=== PATIENT | female | born 1990 | race Caucasian/White ===

== ENCOUNTER 2020-06-19 18:45 | Emergency (ER) | payer MEDICAID, SELFPAY ==
--- NOTE | 2020-06-19 17:12 | ECG_ITS ---
Test Reason : CHEST TITENESS Blood Pressure : / mmHG Vent. Rate : 065 BPM Atrial Rate : 065 BPM P-R Int : 130 ms QRS Dur : 096 ms QT Int : 414 ms P-R-T Axes : 019 045 039 degrees QTc Int : 430 ms Normal sinus rhythm Normal ECG When compared with ECG of 30-NOV-2018 01:59, Nonspecific T wave abnormality no longer evident in Anterior leads Referred By: Dyllan Moya Electronically Signed By:PETER SERNA
[2020-06-19 20:51] VITALS: BP 157/100; PULSE 75; RESP 16; TEMP 37.1; O2SAT 100; BMI 68.3
--- NOTE | 2020-06-19 22:00 | PC.NURSE ---
Addendum entered by Joycelyn Sandhu 06/19/20 22:33: PREVIOUS DOCUMENTATION A LATE ENTRY. ACTUAL TIME OF NOTE 2139. Original Note: PT REPORTS SOB SINCE MONDAY, LIGHTHEADED AT TIMES, WHOLE CHEST TENDERNESS CONSTANT NON RADIATING, REPRODUCIBLE. DENIES FEVER/CHILLS. DENIES COUGH. REPORTS VAGINAL SURGERY LAST WEEK AND ?STOPPED BREATHING DURING PROCEDURE AND PADDLES USED TO RESUSCITATE? SKIN PWD RESPIRATIONS EVEN UNLABORED. MD MET[place]F AT BEDSIDE FOR PRIMARY EVAL.
[2020-06-19] MEDS: ondansetron HCL 4 MG/2 ML VIAL IVPUSH (22:19)
[2020-06-19] MEDS: 0.9 % Sodium Chloride 1,000 ML 999 ML IVCONT (22:19)
[2020-06-19] MEDS: Ketorolac Tromethamine 30 MG/ML VIAL IVPUSH (22:19)
--- NOTE | 2020-06-19 22:24 | PC.NURSE ---
PT MEDICATED PER MD ORDER. IVF HUNG AND INFUSING WITHOUT DIFFICULTY. BLOOD SPECIMEN SENT TO LAB FOR PROCESSING. PT AWAITING CT SCAN, AWARE OF PLAN OF CARE.
[2020-06-19 22:25] LABS: MANUAL DIFF FLAG NO
[2020-06-19 22:26] LABS: Basophils Percent Auto 0.4 % (0-2); Eosinophils Absolute Auto 0.1 X10*3/uL (0.0-0.4); Eosinophils Percent Auto 1.8 % (0-4); Hematocrit 39.6 % (37-47); Hemoglobin 12.6 g/dl (12.0-16.0); Imm Gran Abs Auto 0.09 X10*3/uL (0.00-0.03); Imm Gran Pct Auto 1.2 % (0.0-0.4); Lymphocytes Absolute Auto 1.9 X10*3/uL (1.2-4.9); Lymphocytes Percent Auto 25.9 % (20-40); Mean Corpuscular HGB Conc 31.8 g/dl (31.0-35.0); Mean Corpuscular Hemoglobin 26.9 pg (27.0-33.0); Mean Corpuscular Volume 84.6 fL (80-98); Monocytes Absolute Auto 0.6 X10*3/uL (0.1-1.2); Monocytes Percent Auto 8.2 % (2-11); Neutrophils Absolute Auto 4.6 X10*3/uL (2.0-8.3); Neutrophils Percent Auto 62.5 % (45-73); Platelet Count 278 X10*3/uL (160-400); Red Blood Count 4.68 X10*6/uL (4.20-5.50); Red Cell Distribution Width 13.7 % (11.0-16.0); White Blood Count 7.3 X10*3/uL (4.8-10.8)
[2020-06-19 22:35] LABS: Partial Thromboplastin Time 39.5 SEC (24.1-38.0)
[2020-06-19 22:44] VITALS: BP 172/97; PULSE 67; RESP 18; TEMP 36.7; O2SAT 99
[2020-06-19 23:00] LABS: Anion Gap 12 (12-20); Blood Urea Nitrogen 16 mg/dL (9-16); Calcium 9.9 mg/dL (8.4-10.2); Carbon Dioxide 28 mmol/L (22-29); Chloride 104 mmol/L (96-108); Creatinine Clr Calc Pharmacy 165.4; Estimated Glomerular Filt Rate > 60; Glucose Random 111 mg/dL (60-115); Potassium 4.4 mmol/l (3.3-5.1); Sodium 140 mmol/L (135-145)
[2020-06-19 23:04] LABS: Troponin-I High Sensitivity < 3.5 ng/L (<3.5-17.0)
--- NOTE | 2020-06-19 23:31 | ED.CHESTPAIN ---
HPI - Chest Pain General Chief Complaint: General Medical Stated Complaint: CHEST PRESSURE Time Seen by Provider: 06/19/20 21:32 Source: patient History of Present Illness HPI narrative: patient states for about 5 days has been having chest pain and shortness of breath. Patient states 5 days ago had a outpatient surgery in which had a reaction to the medication and had to stay the night. Since then has been having a heaviness on chest. No diaphoresis. No nausea no vomiting. No syncope. Patient describes chest pain as pressure tightness without moving and intermittent shortness of breath MD complaint: chest pain and chest heaviness Pertinent past history: coronary artery disease Onset (ago): day(s) ( 5 days) Timing of current episode: constant Prior episodes: No Quality: other ( pressure type) Related Data On Oral Contraceptives: No Allergies Allergy/AdvReac Type Severity Reaction Status Date / Time oxycodone [OXYCODONE] Allergy Severe DIFFICULTY Unverified 06/04/20 17:33 BREATHING adhesive tape [ADHESIVE TAPE] Allergy Unknown RASH Unverified 06/04/20 17:33 Review of Systems Review of Systems: Constitutional : No Weight loss, No Fever, No Chills, No Night Sweats, No Fatigue, No Malaise ENT/Mouth : No Hearing loss, No Ear Pain, No Nasal Congestion, No Sinus Pain, No Hoarseness, No sore throat, No Rhinorrhea, No Swallowing Difficulty Eyes: No Eye Pain, No Swelling, No Redness, No Foreign Body, No Discharge, No Vision Changes Cardiovascular : positve Chest Pain, No SOB, No Dyspnea on Exertion, No Orthopnea, No Edema, No Palpitations Respiratory : No Cough, No Sputum, No Wheezing, No Smoke Exposure, No Dyspnea Gastrointestinal : No Nausea, No Vomiting, No Diarrhea, No Constipation, No abdominal Pain, No Hematochezia, No Melena Genitourinary : no irregular bleeding, No Dysuria, No Urinary Frequency, No Hematuria, No Urinary Incontinence, No Urgency, No Flank Pain, No Urinary Flow Changes, No Hesitancy Musculoskeletal : No joint pain, No Myalgias, No Joint Swelling Skin : No Skin Lesions, No rash Neuro : No Weakness, No Numbness, No Paresthesias, No Loss of Consciousness, No Dizziness, No Headache Psych : No Anxiety/Panic, No Depression, No SI/HI/AH/VH, No Social Issues, Heme/Lymph: No Bruising, No Bleeding,No Lymphadenopathy Endocrine : No Polyuria, No Polydipsia, No Temperature Intolerance [facility] Past Medical History Attestation statement: The following information was validated with the patient. [facility] Narrative: patient aware of family history Medical History No known health problems Social History Social History Alcohol intake: current Alcohol intake frequency: a few times a month Smoking Status: Never smoker Smoked in Last 30 Days: No Use of substances other than those prescribed or required for medical reasons: No Advance Directives: No Advance Directives Information Provided: Yes Physical Exam Vital Signs and I&O and Narrative: Vital Signs and I&O: Vital Signs Temp 98.0 F 06/19/20 22:44 Pulse 67 06/19/20 22:44 Resp 18 06/19/20 22:44 BP 172/97 H 06/19/20 22:44 Pulse Ox 99 06/19/20 22:44 Intake & Output 06/19/20 06/19/20 06/20/20 06:59 18:59 06:59 Intake Total 1000 / 1000 Balance 1000 / 1000 Weight 210 kg Intake: Intake, IV Amoun t 1000 / 1000 0.9 % Sodium C hloride 1,000 ml 1000 / 1000 @ 999 mls/hr I VCONT .Q1H1M [facility] Rx#:[id number] Body Mass Index 68.3 vital signs noted Const: General: cooperative and comfortable; No in distress Orientation/consciousness: oriented to person HENMT: Head: Yes normal to inspection Eyes: General: appearance normal, both eyes and all related structures Pupils: Equal, round and reactive pupils present Neck: Neck: Yes normal visual inspection Chest: Chest palpation & inspection: normal inspection of the chest, abnormal palpation of chest wall, normal inspection of the chest, no crepitus, tenderness ( left upper quadrant of the chest) and No Pacemaker present Resp: Effort & Inspection: normal respiratory effort, respiratory effort not decreased and no respiratory distress Auscultation: clear to auscultation bilaterally and no bronchial breath sounds Cardio: Jugular venous distension: no JVD Palpation: PMI normal, no heave and no palpable S3 Rate: regular rate GI: Inspection: Yes normal to inspection Back/Spine/Pelvis: Thoracic/Lumbar Spine: thoracic and lumbar spine normal to inspection Skin: Rashes: no rashes Neuro: General: oriented to person Cranial nerves: Yes Equal, round and reactive pupils present Extrem: General: Yes normal to inspection Psych: Appearance: grossly normal Course Reevaluation(s) Reevaluation #1: patient rested emergency department. CT scan of the chest negative for pulmonary embolism. Troponin normal . labs negative. patient did have some tenderness to the chest and I will diagnose with costochondritis. Doubt patient has acute coronary syndrome at this point. I discussed the patient's reasons return to the emergency department. Patient is on pain medicines from recent surgery. MDM - Chest Pain MDM Narrative Medical decision making narrative: 30-year-old female with recent surgery came in for chest pain and shortness of breath. No signs of pulmonary embolism, pneumonia, or acute coronary syndrome. Will discharge home with p.o. medications for costochondritis Differential Diagnosis Differential diagnosis: Likely fracture of rib, pneumothorax and atypical chest pain ( pulmonary embolism) Medical Records Data Attestation: I reviewed the patient's medical records. Lab Data Attestation: I reviewed the patient's lab results. Result diagrams: 06/19/20 22:17 06/19/20 22:17 Labs: Lab Results 06/19/20 06/19/20 06/19/20 Range/Units 22:17 22:17 22:17 WBC 7.3 (4.8-10.8) X10*3/uL RBC 4.68 (4.20-5.50) X10*6/uL Hgb 12.6 (12.0-16.0) g/dl Hct 39.6 (37-47) % MCV 84.6 (80-98) fL MCH 26.9 L (27.0-33.0) pg MCHC 31.8 (31.0-35.0) g/dl RDW 13.7 (11.0-16.0) % Plt Count 278 (160-400) X10*3/uL MPV 11.0 (9.4-12.3) fL Immature Gran % (Auto) 1.2 H (0.0-0.4) % Neut % (Auto) 62.5 (45-73) % Lymph % (Auto) 25.9 (20-40) % [place] % (Auto) 8.2 (2-11) % Eos % (Auto) 1.8 (0-4) % Baso % (Auto) 0.4 (0-2) % Neut # (Auto) 4.6 (2.0-8.3) X10*3/uL Lymph # (Auto) 1.9 (1.2-4.9) X10*3/uL [place] # (Auto) 0.6 (0.1-1.2) X10*3/uL Eos # (Auto) 0.1 (0.0-0.4) X10*3/uL Baso # (Auto) 0.0 (0.0-0.2) X10*3/uL Abs Immat Gran (auto) 0.09 H (0.00-0.03) X10*3/uL Absolute Nucleated RBC 0.000 (0.0-0.012) X10*3/uL Nucleated RBC % (auto) 0.0 (0.0-0.2) /100WBC PT 12.1 (10.8-13.0) SEC INR 1.0 (0.9-1.1) APTT 39.5 H (24.1-38.0) SEC Sodium 140 (135-145) mmol/L Potassium 4.4 (3.3-5.1) mmol/l Chloride 104 (96-108) mmol/L Carbon Dioxide 28 (22-29) mmol/L Anion Gap 12 (12-20) BUN 16 (9-16) mg/dL Creatinine 0.98 (0.5-1.4) mg/dL Estim Creat Clear Calc 165.4 Estimated GFR > 60 Random Glucose 111 (60-115) mg/dL Calcium 9.9 (8.4-10.2) mg/dL Troponin I High Sens (<3.5-17.0) ng/L 06/19/20 Range/Units 22:17 WBC (4.8-10.8) X10*3/uL RBC (4.20-5.50) X10*6/uL Hgb (12.0-16.0) g/dl Hct (37-47) % MCV (80-98) fL MCH (27.0-33.0) pg MCHC (31.0-35.0) g/dl RDW (11.0-16.0) % Plt Count (160-400) X10*3/uL MPV (9.4-12.3) fL Immature Gran % (Auto) (0.0-0.4) % Neut % (Auto) (45-73) % Lymph % (Auto) (20-40) % [place] % (Auto) (2-11) % Eos % (Auto) (0-4) % Baso % (Auto) (0-2) % Neut # (Auto) (2.0-8.3) X10*3/uL Lymph # (Auto) (1.2-4.9) X10*3/uL [place] # (Auto) (0.1-1.2) X10*3/uL Eos # (Auto) (0.0-0.4) X10*3/uL Baso # (Auto) (0.0-0.2) X10*3/uL Abs Immat Gran (auto) (0.00-0.03) X10*3/uL Absolute Nucleated RBC (0.0-0.012) X10*3/uL Nucleated RBC % (auto) (0.0-0.2) /100WBC PT (10.8-13.0) SEC INR (0.9-1.1) APTT (24.1-38.0) SEC Sodium (135-145) mmol/L Potassium (3.3-5.1) mmol/l Chloride (96-108) mmol/L Carbon Dioxide (22-29) mmol/L Anion Gap (12-20) BUN (9-16) mg/dL Creatinine (0.5-1.4) mg/dL Estim Creat Clear Calc Estimated GFR Random Glucose (60-115) mg/dL Calcium (8.4-10.2) mg/dL Troponin I High Sens < 3.5 (<3.5-17.0) ng/L Discharge Plan Discharge Clinical Impression: Acute costochondritis, Chest wall pain Patient Disposition: Home, Self-Care Instructions: Costochondritis (ED) Additional Instructions: Thank you for visiting the emergency department today. If your symptoms worsen or do not resolve completely please return to the emergency department immediately or call 911. if he have any questions please call your primary care physician Referrals: Nesteby,Belia A, HYSTER DRIVER [Primary Care Provider] - 2 days
[2020-06-19 23:42] LABS: Prothrombin Time 12.1 SEC (10.8-13.0)
--- NOTE | 2020-06-20 | CT_ITS ---
EXAMINATION: CT PULMONARY EMBOLISM STUDY CLINICAL INFORMATION: Chest pain. COMPARISON: None. TECHNIQUE: Contiguous helical images of the chest were obtained following the administration of IV contrast. Multiplanar reconstructions were performed. MIPS were obtained and reviewed. DLP: 374 mGy-cm. CONTRAST: 85 mL of Omnipaque 350 were administered without incident. FINDINGS: The heart is of normal size. There is no pericardial effusion. The great vessels are unremarkable. Specifically, there is no pulmonary arterial filling defect. There is no CT evidence for pulmonary embolism. There are no chest wall masses. Intact bilateral breast prostheses are demonstrated. Review of lung windows demonstrates that there are neither pleural effusions nor pneumothoraces. There are no consolidations. There are no pulmonary parenchymal nodules. Limited evaluation of the upper abdomen demonstrates that the liver is of normal size and attenuation without focal lesions. Normal adrenal glands are identified. IMPRESSION: No CT evidence for pulmonary embolism. Automated exposure control (Care Dose) Adjustment of the mA and/or kv according to patient size (this includes techniques or standardized protocols for targeted exams where dose is matched to indication / reason for exam; i.e. extremities or head).
[2020-06-20] MEDS: iohexoL 350 MG/ML 100 ML INFUS..BTL 65 ML IV (00:37)
--- NOTE | 2020-06-20 00:49 | PC.NURSE ---
PT RETURNED FROM CTA AWAITING RESULTS. RESTING IN BED NO CHANGE IN ASSESSMENT.
[2020-06-20 02:12] VITALS: BP 148/100; PULSE 62; RESP 16; TEMP 36.7; O2SAT 96
== END 2020-06-20 02:27 | disposition home or self-care (01) ==
PROVIDERS: Emergency Provider Emergency Medicine; PCP Nurse Practitioner Family
DX: M94.0 Chondrocostal junction syndrome [Tietze] (principal); R07.9 Chest pain, unspecified; R06.02 Shortness of breath
CPT/HCPCS: 36415; 71275; 80048; 84484; 85025; 85610; 85730; 93005; 93010; 96361; 96374; 96375; 99284; J1885; J2405

== ENCOUNTER 2020-08-05 21:59 | Emergency (ER) | payer MEDICAID, SELFPAY ==
[2020-08-05 22:05] VITALS: BP 157/99; PULSE 80; RESP 16; TEMP 36.6; O2SAT 99; BMI 32.5
[2020-08-06] MEDS: Ketorolac Tromethamine 60 MG/2 ML VIAL IM
[2020-08-06] MEDS: Lidocaine 4 % Patch ADH..PATCH 1 PATCH TRANSDERMA (00:01)
--- NOTE | 2020-08-06 01:02 | XR_ITS ---
EXAMINATION: XR LUMBOSACRAL SPINE CLINICAL INFORMATION: Pain COMPARISON: 02/06/2017 TECHNIQUE: Three views of the lumbosacral spine. FINDINGS: There is anatomic alignment of the lumbar vertebral bodies and posterior elements. Vertebral body heights and intervertebral disc spaces are maintained. No acute fracture is seen. Sacroiliac joints appear intact. XR/XR lumbar spine 2-3V IMPRESSION: No acute findings identified.
--- NOTE | 2020-08-06 01:58 | ED_ITS ---
HPI - Back Pain/Injury General Chief Complaint: Back Pain/Injury Stated Complaint: Lower Back Pain Time Seen by Provider: 08/05/20 23:52 Source: patient Mode of arrival: ambulatory Limitations: no limitations History of Present Illness MD elicited complaint: back pain Pertinent past history: prior back pain Onset (ago): hour(s) Timing: constant Severity: moderate Similar Symptoms Previously: Yes Quality: aching Location: lumbar spine Radiation: none Exacerbating factors: movement Relieving factors: immobilization Context: while lifting and turning/twisting Associated symptoms: denies other symptoms Treatments prior to arrival: cold therapy 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) Related Data Previous Rx's Medication Instructions Recorded cyclobenzaprine 5 mg PO TID PRN #20 tab 08/06/20 lidocaine 1 patch TOPICAL Q24H PRN #10 ea 08/06/20 Allergies Allergy/AdvReac Type Severity Reaction Status Date / Time oxycodone [OXYCODONE] Allergy Severe DIFFICULTY Unverified 06/04/20 17:33 BREATHING adhesive tape [ADHESIVE TAPE] Allergy Unknown RASH Unverified 06/04/20 17:33 Review of Systems Review of Systems: Constitutional: No Weight loss, No Fever, No Chills, No Night Sweats ENT/Mouth: No Hearing loss, No Ear Pain, No Nasal Congestion, No Sinus Pain, No Hoarseness, No sore throat, No Rhinorrhea, No Swallowing Difficulty Eyes: No Eye Pain, No Swelling, No Redness, No Foreign Body, No Discharge, No Vision Changes Cardiovascular: No Chest Pain, No SOB, No Dyspnea on Exertion, No Orthopnea, No Edema, No Palpitations Respiratory: No Cough, No Sputum, No Wheezing, No Smoke Exposure, No Dyspnea Gastrointestinal: No Nausea, No Vomiting, No Diarrhea, No Constipation, No abdominal Pain, No Hematochezia, No Melena Genitourinary: no irregular bleeding, No Dysuria, No Urinary Frequency, No Hematuria Musculoskeletal: No joint pain, No Myalgias, No Joint Swelling, + as noted Skin: No Skin Lesions, No rash Neuro: No Weakness, No Numbness, No Paresthesias, No Loss of Consciousness, No Dizziness, No Headache Psych: No Anxiety/Panic Heme/Lymph: No Bruising, No Bleeding,No Lymphadenopathy Endocrine: No Polyuria, No Polydipsia, No Temperature Intolerance Yes all other systems are reviewed and are negative [facility] Past Medical History Attestation statement: The following information was validated with the patient. Medical History No known health problems Social History Social History Alcohol intake: current Alcohol intake frequency: holidays/special occasions only Alcohol type: wine Smoking Status: Never smoker Use of substances other than those prescribed or required for medical reasons: No Advance Directives: No Advance Directives Information Provided: No Physical Exam Vital Signs: Vital Signs: Last Vital Signs Temp 98 F 08/05/20 22:05 Pulse 80 08/05/20 22:05 Resp 16 08/05/20 22:05 BP 157/99 H 08/05/20 22:05 Pulse Ox 99 08/05/20 22:05 Body Mass Index 32.5 Reviewed Const: General: cooperative and healthy appearing; No acute distress or intoxicated appearing Nutritional Appearance: average body habitus Orientation/consciousness: patient oriented x3 HENMT: Head: Yes normal to inspection Ears: hearing grossly normal bilaterally Eyes: General: appearance normal, both eyes and all related structures Visual Domingo: normal visual domingo by confrontation Neck: Neck: No tender Chest: Chest palpation & inspection: normal inspection of the chest Resp: Effort & Inspection: normal respiratory effort Cardio: Jugular venous distension: no JVD GI: Inspection: Yes normal to inspection Percussion: Yes normal to percussion Auscultation: normal bowel sounds Back/Spine/Pelvis: Other: slight ttp over the bilateral lumbar paraspinal muscle. No midline to palpation. No step-off. Skin: General skin exam: no rashes or lesions noted Neuro: General: patient oriented x3 Extrem: General: Yes normal to inspection Course Course Course Narrative: AP consistent with strain type injury. No low back pain reflux. Ambulatory status with gait. X-ray unremarkable. Given the injury did occur at work from repetitive use type injury will be given a work note per his request and encouraged to [facility] with [facility]. Verbalized understanding. Stable for discharge. MDM - Back Pain/Injury Differential Diagnosis Differential diagnosis: Likely strain of lumbar region; Unlikely lumbar radiculopathy, sciatica, renal colic, pyelonephritis, thoracic back pain, AAA and discitis Medical Records Attestation: I reviewed the patient's medical records. Lab Data Attestation: I reviewed the patient's lab results. Imaging Data Lumbar spine x-ray: Radiologist's impression: Alla Murrieta V 30 F [address] [address] XRay Report Signed Patient: Alla Murrieta VMR#: [id number] : 1990Acct:[id number] Age/Sex: 30 / FADM Date: 08/06/20 Loc: HO.ED Attending Dr: Ordering Physician: Prasad Rodriguez NP Date of Service: 08/06/20 Procedure(s): XR lumbar spine 2-3V Accession Number(s): [id number] cc: Prasad Rodriguez NP~ EXAMINATION: XR LUMBOSACRAL SPINE CLINICAL INFORMATION: Pain COMPARISON: 02/06/2017 TECHNIQUE: Three views of the lumbosacral spine. FINDINGS: There is anatomic alignment of the lumbar vertebral bodies and posterior elements. Vertebral body heights and intervertebral disc spaces are maintained. No acute fracture is seen. Sacroiliac joints appear intact. XR/XR lumbar spine 2-3V IMPRESSION: No acute findings identified. Dictated By:CITLALLI CHEN MD Signed By:<Electronically signed by CITLALLI CHEN MD in OV>08/06/20222 DD/ 1 TD/TT: Credit Manager: TH Discharge Plan Discharge Clinical Impression: Strain of lumbar region Patient Disposition: Home, Self-Care Instructions: Low Back Strain (ED), Lower Back Exercises (ED) Additional Instructions: Home cares reviewed Follow-up with [facility] as discussed Return if any concerns or worsening symptoms Thank you Prescriptions: New cyclobenzaprine 10 mg tablet 5 mg PO TID PRN (Reason: muscle spasm) Qty: 20 RF: 0 lidocaine 4 % adhesive patch,medicated 1 patch topical Q24H PRN (Reason: pain) Qty: 10 RF: 0 Referrals: Physician,Unknown [Primary Care Provider] - 3 days ( primary care/ [facility]) Stand Alone Forms: Work/School Release Interventions: ED Discharge Assessment Last Done: 08/06/20 02:25 Discharge Date/Time: 08/06/20 02:26
== END 2020-08-06 02:26 | disposition home or self-care (01) ==
PROVIDERS: Emergency Provider Student in an Organized Health Care Education/Training Program
DX: S39.012A Strain of muscle, fascia and tendon of lower back, initial encounter (principal); X50.1XXA Overexertion from prolonged static or awkward postures, initial encounter; Y93.9 Activity, unspecified; Y92.9 Unspecified place or not applicable; Y99.9 Unspecified external cause status
CPT/HCPCS: 72100; 96372; 99284; J1885

== ENCOUNTER 2020-11-15 19:32 | Emergency (ER) | payer MEDICAID, SELFPAY ==
--- NOTE | ~2020-11-15 | CT_ITS ---
EXAMINATION: CT ABDOMEN AND PELVIS WITHOUT CONTRAST CLINICAL INFORMATION: Left flank pain COMPARISON: None TECHNIQUE: Multidetector volumetric imaging was performed from the superior aspect of the liver through the pubic symphysis. Sagittal and coronal reformatted images were obtained on the technologist's workstation. This CT examination was performed using dose optimization techniques as appropriate, variously including the following: *Automated exposure control *Adjustment of mA and/or kV according to patient size (this includes techniques or standardized protocols for targeted exams where dose is matched to indication/reason for exam; i.e. extremities or head) *Use of iterative reconstruction technique DLP: 732 mGy-cm FINDINGS: LUNG BASES: The visualized lung bases are unremarkable. LIVER, GALLBLADDER, AND BILIARY TREE: The liver is normal in size, shape, and attenuation. No focal hepatic lesion or biliary ductal dilatation is present. Gallbladder unremarkable. PANCREAS: Unremarkable. SPLEEN: Unremarkable. ADRENAL GLANDS: Subcentimeter low-density (8 Hounsfield units) lipid rich adrenal adenoma on the right, stable. Left adrenal gland normal. KIDNEYS AND URETERS: There is perinephric stranding on the left associated with minimal hydronephrosis and hydroureter. Mild left periureteral fat stranding. No urinary calculi are seen. Right kidney unremarkable. BLADDER: Thick walled showing perivesicular fat stranding suggestive of cystitis. GASTROINTESTINAL TRACT: The small and large bowel are unremarkable. The appendix is unremarkable. ABDOMINAL WALL: No significant hernia is appreciated. LYMPH NODES: Normal. VASCULAR: Unremarkable. PELVIC VISCERA: Prostate and seminal vesicles unremarkable. OSSEOUS STRUCTURES: Unremarkable. CT/CT abdomen pelvis wo con IMPRESSION: No urinary calculi. Findings compatible with LEFT pyelonephritis with LEFT ureteritis and cystitis.
[2020-11-15 19:34] VITALS: BP 158/84; PULSE 102; RESP 15; TEMP 37.3; O2SAT 100; BMI 33.2
--- NOTE | 2020-11-15 20:21 | ED_ITS ---
HPI - Female Genitourinary General Chief complaint: Urogenital-Female Stated complaint: Flank pain Time Seen by Provider: 11/15/20 20:21 Source: patient Mode of arrival: ambulatory Limitations: no limitations History of Present Illness HPI Narrative: Patient transgender male to female complaining of pain in the left flank area since yesterday with burning and frequency when urinate no fever no nausea no vomiting no history of kidney stones MD elicited complaint: dysuria Onset (ago): day(s) (1) Severity: moderate Quality of pain: sharp Consistency: intermittent Urinary symptoms: Dysuria, Urgency and Frequency Exacerbating factors: none Relieving factors: none Associated symptoms: denies other symptoms Related Data Previous Rx's Medication Instructions Recorded cyclobenzaprine 5 mg PO TID PRN #20 tab 08/06/20 ciprofloxacin HCl [Cipro] 500 mg PO BID #20 tab 11/15/20 phenazopyridine [Pyridium] 200 mg PO TID PRN 2 Days #5 tab 11/15/20 tramadol 50 mg PO Q6H PRN #14 tab 11/15/20 Allergies Allergy/AdvReac Type Severity Reaction Status Date / Time oxycodone [OXYCODONE] Allergy Severe DIFFICULTY Verified 11/15/20 19:41 BREATHING adhesive tape [ADHESIVE TAPE] Allergy Unknown RASH Verified 11/15/20 19:41 Review of Systems Review of Systems: Constitutional : No Weight loss, No Fever, No Chills ENT/Mouth : No sore throat, No Rhinorrhea Eyes: No Eye Pain, No Swelling Cardiovascular : No Chest Pain, no palpitations Respiratory : No Cough, No Sputum, no shortness of breath Gastrointestinal : no Nausea, No Vomiting, No Diarrhea, No abdominal Pain, no black stools Genitourinary : + Dysuria, + Urinary Frequency Musculoskeletal : No joint pain, No Myalgias, No Joint Swelling Skin : No Skin Lesions, No rash Neuro : No Weakness, No Numbness, No Dizziness, No Headache Psych : No Anxiety/Panic, No Depression Heme/Lymph: No Bruising, No Lymphadenopathy Endocrine : No Polyuria, No Polydipsia All other systems reviewed and are negative [facility] Past Medical History Medical History [id number] transgender person Social History Social History Alcohol intake: current Alcohol intake frequency: holidays/special occasions only Alcohol type: wine Smoking Status: Never smoker Use of substances other than those prescribed or required for medical reasons: No Advance Directives: No Advance Directives Information Provided: No Physical Exam Vital Signs: Vital Signs: Last Vital Signs Temp 100.2 F 11/15/20 23:35 Pulse 79 11/15/20 23:35 Resp 18 11/15/20 23:35 BP 162/91 H 11/15/20 23:35 Pulse Ox 100 11/15/20 23:35 Body Mass Index 33.2 Appearance: Alert. Oriented X3. No acute distress. Eyes: Pupils equal, round and reactive to light. ENT: Pharynx normal. Neck: Normal inspection. Neck supple. CVS: Normal heart rate and rhythm. Pulses normal. Respiratory: No respiratory distress. Breath sounds normal. Abdomen: Soft and nontender. Bowel sounds are present, no mass palpable, left C VA tenderness + Skin: Skin warm and dry. Normal skin color. Normal skin turgor. Extremities: No lower extremity edema. Neuro: Oriented X 3. No motor deficit. No sensory deficit. MDM - Female Genitourinary MDM Narrative Medical decision making narrative: Patient with acute UTI with pyelonephritis no signs of complication at this time no nausea no vomiting no high fever will discharge patient home on Cipro. Patient received 1 g of IV Rocephin in the ER Differential Diagnosis Differential diagnosis: Likely urinary tract infection and cystitis Lab Data Attestation: I reviewed the patient's lab results. Result diagrams: 11/15/20 20:55 11/15/20 20:55 Labs: Lab Results 11/15/20 11/15/20 11/15/20 Range/Units 20:55 20:55 21:20 WBC 12.1 H (4.8-10.8) X10*3/uL RBC 4.47 (4.20-5.50) X10*6/uL Hgb 12.3 (12.0-16.0) g/dl Hct 38.1 (37-47) % MCV 85.2 (80-98) fL MCH 27.5 (27.0-33.0) pg MCHC 32.3 (31.0-35.0) g/dl RDW 14.0 (11.0-16.0) % Plt Count 210 (160-400) X10*3/uL MPV 11.7 (9.4-12.3) fL Immature Gran % (Auto) 0.2 (0.0-0.4) % Neut % (Auto) 72.5 (45-73) % Lymph % (Auto) 17.8 L (20-40) % Person % (Auto) 8.7 (2-11) % Eos % (Auto) 0.5 (0-4) % Baso % (Auto) 0.3 (0-2) % Lymph # (Auto) 2.2 (1.2-4.9) X10*3/uL Person # (Auto) 1.1 (0.1-1.2) X10*3/uL Eos # (Auto) 0.1 (0.0-0.4) X10*3/uL Baso # (Auto) 0.0 (0.0-0.2) X10*3/uL Abs Immat Gran (auto) 0.02 (0.00-0.03) X10*3/uL Absolute Neuts (auto) 8.8 H (2.0-8.3) X10*3/uL Absolute Nucleated RBC 0.000 (0.0-0.012) X10*3/uL Nucleated RBC % (auto) 0.0 (0.0-0.2) /100WBC Sodium 137 (135-145) mmol/L Potassium 4.0 (3.3-5.1) mmol/L Chloride 103 (96-108) mmol/L Carbon Dioxide 23 (22-29) mmol/L Anion Gap 15 (12-20) BUN 14 (9-16) mg/dL Creatinine 0.88 (0.5-1.4) mg/dL Estim Creat Clear Calc 119.9 Estimated GFR > 60 Random Glucose 108 (60-115) mg/dL Calcium 9.1 D (8.4-10.2) mg/dL Urine Color YELLOW Urine Appearance CLOUDY Urine pH 6.0 (5.0-8.0) Ur Specific Verbena 1.020 (1.005-1.025) Urine Protein 2+ H (NEG-TRACE) MG/DL Urine Glucose (UA) NEG (NEG) MG/DL Urine Ketones NEG (NEG) MG/DL Urine Blood 3+ H (NEG) Urine Nitrite POS H (NEG) Ur Leukocyte Esterase 2+ H (NEG) Urine RBC 5-9 H (0) /HPF Urine WBC 76-150 H (0-4) /HPF Ur Squamous Epith Cells TRACE /LPF Urine Bacteria 3+ /LPF Discharge Plan Discharge Clinical Impression: Pyelonephritis Patient Disposition: Home, Self-Care Instructions: Kidney Infection (ED) Additional Instructions: Drink plenty of fluids Take antibiotics as prescribed Report to the ER if high-grade fever/vomiting/not feeling good Prescriptions: New ciprofloxacin HCl [Cipro] 500 mg tablet 500 mg PO BID Qty: 20 RF: 0 phenazopyridine [Pyridium] 200 mg tablet 200 mg PO TID PRN (Reason: pain) 2 Days Qty: 5 RF: 0 tramadol 50 mg tablet 50 mg PO Q6H PRN (Reason: pain) Qty: 14 RF: 0 No Action cyclobenzaprine 10 mg tablet 5 mg PO TID PRN (Reason: muscle spasm) Qty: 20 RF: 0 Discharge Date/Time: 11/15/20 23:39
[2020-11-15 20:32] VITALS: BP 154/91; PULSE 83; RESP 18; TEMP 38.1; O2SAT 100
[2020-11-15 20:59] LABS: MANUAL DIFF FLAG NO
[2020-11-15 21:01] LABS: Basophils Percent Auto 0.3 % (0-2); Eosinophils Absolute Auto 0.1 X10*3/uL (0.0-0.4); Eosinophils Percent Auto 0.5 % (0-4); Hematocrit 38.1 % (37-47); Hemoglobin 12.3 g/dl (12.0-16.0); Imm Gran Abs Auto 0.02 X10*3/uL (0.00-0.03); Imm Gran Pct Auto 0.2 % (0.0-0.4); Lymphocytes Absolute Auto 2.2 X10*3/uL (1.2-4.9); Lymphocytes Percent Auto 17.8 % (20-40); Mean Corpuscular HGB Conc 32.3 g/dl (31.0-35.0); Mean Corpuscular Hemoglobin 27.5 pg (27.0-33.0); Mean Corpuscular Volume 85.2 fL (80-98); Mean Platelet Volume 11.7 fL (9.4-12.3); Monocytes Absolute Auto 1.1 X10*3/uL (0.1-1.2); Monocytes Percent Auto 8.7 % (2-11); Neutrophils Absolute Auto 8.8 X10*3/uL (2.0-8.3); Neutrophils Percent Auto 72.5 % (45-73); Platelet Count 210 X10*3/uL (160-400); Red Blood Count 4.47 X10*6/uL (4.20-5.50); White Blood Count 12.1 X10*3/uL (4.8-10.8)
[2020-11-15] MEDS: 0.9 % Sodium Chloride 1,000 ML 999 ML IVCONT (21:12)
[2020-11-15] MEDS: Ketorolac Tromethamine 30 MG/ML VIAL IVPUSH (21:13)
[2020-11-15 21:26] LABS: Anion Gap 15 (12-20); Blood Urea Nitrogen 14 mg/dL (9-16); Calcium 9.1 mg/dL (8.4-10.2); Carbon Dioxide 23 mmol/L (22-29); Chloride 103 mmol/L (96-108); Creatinine Clr Calc Pharmacy 119.9; Estimated Glomerular Filt Rate > 60; Glucose Random 108 mg/dL (60-115); Sodium 137 mmol/L (135-145)
[2020-11-15 21:32] LABS: Glucose Urine UA NEG (NEG); Leukocyte Esterase Urine 2+ (NEG); Nitrite Urine POS (NEG); UACC Culture Trigger YES; Urine Blood 3+ (NEG); Urine Ketones NEG (NEG); Urine Protein 2+ MG/DL (NEG-TRACE)
[2020-11-15 21:33] LABS: Appearance Urine CLOUDY; Color Urine YELLOW
[2020-11-15 21:39] LABS: Bacteria Urine 3+ /LPF; Squamous Epithelial Cell Urine TRACE /LPF
[2020-11-15] MEDS: ondansetron HCL 4 MG/2 ML VIAL IVPUSH (22:27)
[2020-11-15] MEDS: Morphine Sulfate 4 MG/ML CARTRIDGE IVPUSH (22:40)
[2020-11-15] MEDS: cefTRIAXone sodium 1 GM in 0.9 % Sodium Chloride 50 ML IV (22:41)
[2020-11-15 23:35] VITALS: BP 162/91; PULSE 79; RESP 18; TEMP 37.9; O2SAT 100
[2020-11-15] MEDS: Acetaminophen 325 MG TABLET 650 MG PO (23:38)
[2020-11-15] MEDS: Phenazopyridine HCL 200 MG TABLET PO (23:39)
== END 2020-11-15 23:39 | disposition home or self-care (01) ==
PROVIDERS: Emergency Provider Internal Medicine
DX: N12 Tubulo-interstitial nephritis, not specified as acute or chronic (principal); R30.0 Dysuria; R35.0 Frequency of micturition; Z79.899 Other long term (current) drug therapy
CPT/HCPCS: 36415; 74176; 80048; 81001; 81003; 85025; 87086; 87088; 87186; 96361; 96365; 96375; 96376; 99284; J0696; J1885; J2270; J2405

== ENCOUNTER 2021-04-18 19:57 | Emergency (ER) | payer MEDICAID, SELFPAY ==
--- NOTE | ~2021-04-18 | CT_ITS ---
EXAMINATION: CT ABDOMEN AND PELVIS WITH CONTRAST CLINICAL INFORMATION: Supraumbilical/right lower quadrant pain COMPARISON: 11/07/2020 TECHNIQUE: Multidetector volumetric images were obtained from the superior aspect of the liver through the pubic symphysis following administration 85 mL of Omnipaque 350 intravenous contrast. Sagittal and coronal reformatted images were obtained on the technologist's workstation. Oral contrast: No This CT examination was performed using dose optimization techniques as appropriate, variously including the following: *Automated exposure control *Adjustment of mA and/or kV according to patient size (this includes techniques or standardized protocols for targeted exams where dose is matched to indication/reason for exam; i.e. extremities or head) *Use of iterative reconstruction technique DLP: 866 mGy-cm FINDINGS: LUNG BASES: The visualized lung bases are unremarkable. LIVER, GALLBLADDER, AND BILIARY TREE: Liver normal in size, contour and morphology. There is a 3.9 cm hypodensity within hepatic segment 6 showing some peripheral nodular enhancement matching that of blood pool most compatible with a hemangioma. No suspicious liver lesions. Gallbladder unremarkable. PANCREAS: Unremarkable. SPLEEN: Unremarkable. ADRENAL GLANDS: Stable subcentimeter nodule within the right adrenal gland, previously showing attenuation less than 10 Hounsfield units compatible with a lipid rich adenoma. Left adrenal gland is normal. KIDNEYS AND URETERS: The kidneys are normal in size, shape, and attenuation. No hydronephrosis, hydroureter, or calculi seen. No perinephric stranding. BLADDER: Unremarkable. GASTROINTESTINAL TRACT: The small and large bowel are unremarkable. The appendix is unremarkable. ABDOMINAL WALL: No significant hernia is appreciated. LYMPH NODES: Normal. VASCULAR: Unremarkable. PELVIC VISCERA: Prostate and seminal vesicles unremarkable. OSSEOUS STRUCTURES: Unremarkable. CT/CT abdomen pelvis w con IMPRESSION: No acute findings within the abdomen or pelvis to explain the patient's symptomatology.
[2021-04-18 20:11] VITALS: BP 154/93; PULSE 86; RESP 18; TEMP 36.6; O2SAT 99; BMI 33.2
[2021-04-18 22:56] VITALS: BP 150/97; PULSE 71; RESP 18; TEMP 36.8; O2SAT 99
[2021-04-18 23:05] LABS: Appearance Urine CLEAR; Color Urine STRAW; Glucose Urine UA NEG (NEG); Leukocyte Esterase Urine NEG (NEG); Nitrite Urine NEG (NEG); UACC Culture Trigger NO; Urine Blood NEG (NEG); Urine Ketones NEG (NEG); Urine Protein NEG (NEG-TRACE)
[2021-04-18 23:06] LABS: UPreg QC Valid YES; Urine Pregnancy NEGATIVE (NEGATIVE)
[2021-04-18 23:19] LABS: Basophils Percent Auto 0.4 % (0-2); Eosinophils Absolute Auto 0.1 X10*3/uL (0.0-0.4); Eosinophils Percent Auto 1.8 % (0-4); Hematocrit 39.9 % (37-47); Imm Gran Abs Auto 0.03 X10*3/uL (0.00-0.03); Imm Gran Pct Auto 0.4 % (0.0-0.4); Lymphocytes Absolute Auto 2.8 X10*3/uL (1.2-4.9); Lymphocytes Percent Auto 34.6 % (20-40); MANUAL DIFF FLAG NO; Mean Corpuscular HGB Conc 32.6 g/dl (31.0-35.0); Mean Corpuscular Hemoglobin 27.9 pg (27.0-33.0); Mean Corpuscular Volume 85.6 fL (80-98); Mean Platelet Volume 11.9 fL (9.4-12.3); Monocytes Absolute Auto 0.7 X10*3/uL (0.1-1.2); Monocytes Percent Auto 8.9 % (2-11); Neutrophils Absolute Auto 4.3 X10*3/uL (2.0-8.3); Neutrophils Percent Auto 53.9 % (45-73); Platelet Count 238 X10*3/uL (160-400); Red Blood Count 4.66 X10*6/uL (4.20-5.50); Red Cell Distribution Width 13.4 % (11.0-16.0)
[2021-04-18 23:44] VITALS: BP 157/87; PULSE 69; RESP 14; O2SAT 98
--- NOTE | 2021-04-18 23:51 | ED_ITS ---
HPI - Abdominal Pain General Chief Complaint: Abdominal Pain Stated Complaint: upper abd/chest pain Time Seen by Provider: 04/18/21 23:51 Source: patient Mode of arrival: ambulatory History of Present Illness HPI narrative: 31-year-old female presents with onset of epigastric/mid upper abdominal pain that is rated as a 7-9/10 associated with some nausea but denies any fever, chills, diarrhea, urinary pain/burning/frequency. Patient states that she has never had this pain before but endorses on triage that she was drinking alcohol earlier in the evening. In addition, patient denies any surgical history in the abdomen. Related Data Previous Rx's Medication Instructions Recorded cyclobenzaprine 10 mg tablet 5 mg PO TID PRN #20 tab 08/06/20 ciprofloxacin HCl 500 mg tablet 500 mg PO BID #20 tab 11/15/20 (Cipro) phenazopyridine 200 mg tablet 200 mg PO TID PRN 2 Days #5 tab 11/15/20 (Pyridium) tramadol 50 mg tablet 50 mg PO Q6H PRN #14 tab 11/15/20 omeprazole 40 mg capsule,delayed 40 mg PO DAILY 30 Days #30 cap 04/19/21 release Allergies Allergy/AdvReac Type Severity Reaction Status Date / Time oxycodone [OXYCODONE] Allergy Severe DIFFICULTY Verified 11/15/20 19:41 BREATHING adhesive tape [ADHESIVE TAPE] Allergy Unknown RASH Verified 11/15/20 19:41 Review of Systems Review of Systems Pertinent positives and negatives as stated in HPI 10 point review of systems is otherwise negative. Physical Exam Vital Signs: Vital Signs: Last Vital Signs Temp 98.3 F 04/18/21 22:56 Pulse 69 04/18/21 23:44 Resp 14 04/18/21 23:44 BP 157/87 H 04/18/21 23:44 Pulse Ox 98 04/18/21 23:44 Body Mass Index 33.2 VITAL SIGNS: Reviewed. GENERAL: Well developed, well nourished, in no acute distress. HEAD: Normocephalic/atraumatic EYES: PERRLA, EOMI OROPHARYNX: no oral lesions noted, posterior pharynx clear, moist mucosa LUNGS: Normal breath sounds. No adventitious sounds or accessory muscle use. SpO2<98> CARDIOVASCULAR: Regular rate and rhythm without noted murmurs ABDOMEN: Soft, tenderness noted to right lower quadrant on deep palpation as well as noted supraumbilical discomfort, non-distended with bowel sounds. SKIN: Inspection of the skin reveals no rashes NEUROLOGIC: Alert and oriented x 4. Course Course Course Narrative: 31-year-old female with history and clinical presentation consistent with biliary colic, will rule out cholecystitis/pancreatitis/less likely appendicitis. Review of all investigations without acute findings to better explain patient's symptomatology. All results discussed with her at bedside and patient will be treated for presumptive of gastritis and discharged home in stable condition. MDM - Abdominal Pain Lab Data Result diagrams: 04/18/21 23:13 04/18/21 23:13 Labs: Lab Results 04/18/21 04/18/21 04/18/21 Range/Units 22:59 22:59 23:13 WBC 8.0 (4.8-10.8) X10*3/uL RBC 4.66 (4.20-5.50) X10*6/uL Hgb 13.0 (12.0-16.0) g/dl Hct 39.9 (37-47) % MCV 85.6 (80-98) fL MCH 27.9 (27.0-33.0) pg MCHC 32.6 (31.0-35.0) g/dl RDW 13.4 (11.0-16.0) % Plt Count 238 (160-400) X10*3/uL MPV 11.9 (9.4-12.3) fL Immature Gran % (Auto) 0.4 (0.0-0.4) % Neut % (Auto) 53.9 (45-73) % Lymph % (Auto) 34.6 (20-40) % [place] % (Auto) 8.9 (2-11) % Eos % (Auto) 1.8 (0-4) % Baso % (Auto) 0.4 (0-2) % Lymph # (Auto) 2.8 (1.2-4.9) X10*3/uL [place] # (Auto) 0.7 (0.1-1.2) X10*3/uL Eos # (Auto) 0.1 (0.0-0.4) X10*3/uL Baso # (Auto) 0.0 (0.0-0.2) X10*3/uL Abs Immat Gran (auto) 0.03 (0.00-0.03) X10*3/uL Absolute Neuts (auto) 4.3 (2.0-8.3) X10*3/uL Absolute Nucleated RBC 0.000 (0.0-0.012) X10*3/uL Nucleated RBC % (auto) 0.0 (0.0-0.2) /100WBC Sodium (135-145) mmol/L Potassium (3.3-5.1) mmol/L Chloride (96-108) mmol/L Carbon Dioxide (22-29) mmol/L Anion Gap (12-20) BUN (9-16) mg/dL Creatinine (0.5-1.4) mg/dL Estim Creat Clear Calc Estimated GFR Random Glucose (60-115) mg/dL Calcium (8.4-10.2) mg/dL Total Bilirubin (0.0-1.0) mg/dL AST (5-31) U/L ALT (0-31) U/L Alkaline Phosphatase (39-117) U/L Total Protein (6.5-8.0) g/dL Albumin (3.5-5.0) g/dL Lipase (8-78) U/L Urine Color STRAW Urine Appearance CLEAR Urine pH 6.0 (5.0-8.0) Ur Specific [place] 1.010 (1.005-1.025) Urine Protein NEG (NEG-TRACE) MG/DL Urine Glucose (UA) NEG (NEG) MG/DL Urine Ketones NEG (NEG) MG/DL Urine Blood NEG (NEG) Urine Nitrite NEG (NEG) Ur Leukocyte Esterase NEG (NEG) Urine Test NEGATIVE (NEGATIVE) 04/18/21 Range/Units 23:13 WBC (4.8-10.8) X10*3/uL RBC (4.20-5.50) X10*6/uL Hgb (12.0-16.0) g/dl Hct (37-47) % MCV (80-98) fL MCH (27.0-33.0) pg MCHC (31.0-35.0) g/dl RDW (11.0-16.0) % Plt Count (160-400) X10*3/uL MPV (9.4-12.3) fL Immature Gran % (Auto) (0.0-0.4) % Neut % (Auto) (45-73) % Lymph % (Auto) (20-40) % [place] % (Auto) (2-11) % Eos % (Auto) (0-4) % Baso % (Auto) (0-2) % Lymph # (Auto) (1.2-4.9) X10*3/uL [place] # (Auto) (0.1-1.2) X10*3/uL Eos # (Auto) (0.0-0.4) X10*3/uL Baso # (Auto) (0.0-0.2) X10*3/uL Abs Immat Gran (auto) (0.00-0.03) X10*3/uL Absolute Neuts (auto) (2.0-8.3) X10*3/uL Absolute Nucleated RBC (0.0-0.012) X10*3/uL Nucleated RBC % (auto) (0.0-0.2) /100WBC Sodium 141 (135-145) mmol/L Potassium 4.3 (3.3-5.1) mmol/L Chloride 109 H (96-108) mmol/L Carbon Dioxide 21 L (22-29) mmol/L Anion Gap 15 (12-20) BUN 14 (9-16) mg/dL Creatinine 0.91 (0.5-1.4) mg/dL Estim Creat Clear Calc 114.9 Estimated GFR > 60 Random Glucose 93 (60-115) mg/dL Calcium 9.7 D (8.4-10.2) mg/dL Total Bilirubin 0.3 (0.0-1.0) mg/dL AST 19 (5-31) U/L ALT 30 (0-31) U/L Alkaline Phosphatase 109 (39-117) U/L Total Protein 7.0 (6.5-8.0) g/dL Albumin 4.5 (3.5-5.0) g/dL Lipase 20 (8-78) U/L Urine Color Urine Appearance Urine pH (5.0-8.0) Ur Specific [place] (1.005-1.025) Urine Protein (NEG-TRACE) MG/DL Urine Glucose (UA) (NEG) MG/DL Urine Ketones (NEG) MG/DL Urine Blood (NEG) Urine Nitrite (NEG) Ur Leukocyte Esterase (NEG) Urine Test (NEGATIVE) Discharge Plan Discharge Clinical Impression: Gastritis Patient Disposition: Home, Self-Care Instructions: Gastritis (ED), Diet for Stomach Ulcers and Gastritis (ED) Additional Instructions: 1. Resume all home medications as prescribed. 2. Please follow-up with your primary care provider as scheduled. Return to the ER for acute worsening of symptoms. Prescriptions: New omeprazole 40 mg capsule,delayed release(DR/EC) 40 mg PO DAILY 30 Days Qty: 30 RF: 0 No Action cyclobenzaprine 10 mg tablet 5 mg PO TID PRN (Reason: muscle spasm) Qty: 20 RF: 0 ciprofloxacin HCl [Cipro] 500 mg tablet 500 mg PO BID Qty: 20 RF: 0 phenazopyridine [Pyridium] 200 mg tablet 200 mg PO TID PRN (Reason: pain) 2 Days Qty: 5 RF: 0 tramadol 50 mg tablet 50 mg PO Q6H PRN (Reason: pain) Qty: 14 RF: 0 Referrals: Belia Urrutia DIRECTOR CARDIOLOGY [Primary Care Provider] - 2 days [facility] Past Medical History Source: nursing notes reviewed Medical History [id number] transgender person Social History Social History Alcohol intake: current Alcohol intake frequency: holidays/special occasions only Alcohol type: wine Advance Directives: No Advance Directives Information Provided: Yes Patient : No (Transgender.)
[2021-04-18 23:52] LABS: Alanine Aminotransferase 30 U/L (0-31); Albumin Level 4.5 g/dL (3.5-5.0); Alkaline Phosphatase 109 U/L (39-117); Anion Gap 15 (12-20); Aspartate Amino Transferase 19 U/L (5-31); Bilirubin Total 0.3 mg/dL (0.0-1.0); Blood Urea Nitrogen 14 mg/dL (9-16); Calcium 9.7 mg/dL (8.4-10.2); Carbon Dioxide 21 mmol/L (22-29); Chloride 109 mmol/L (96-108); Creatinine Clr Calc Pharmacy 114.9; Estimated Glomerular Filt Rate > 60; Glucose Random 93 mg/dL (60-115); Potassium 4.3 mmol/L (3.3-5.1); Sodium 141 mmol/L (135-145)
[2021-04-19] MEDS: Ketorolac Tromethamine 15 MG/ML VIAL IVPUSH (00:05)
[2021-04-19] MEDS: Acetaminophen 325 MG TABLET 975 MG PO (00:06)
[2021-04-19 00:12] LABS: Lipase 20 U/L (8-78)
[2021-04-19] MEDS: iohexoL 350 MG/ML 100 ML INFUS..BTL 85 ML IV (02:15)
[2021-04-19] MEDS: Lidocaine HCl Viscous 2 % 15 ML SOLUTION 10 ML MUCOUS MEM (03:31)
[2021-04-19] MEDS: Magnesium Hydrox/Alum Hydrox 30 ML ORAL.SUSP PO (03:31)
== END 2021-04-19 05:01 | disposition home or self-care (01) ==
PROVIDERS: Emergency Provider Student in an Organized Health Care Education/Training Program; PCP Nurse Practitioner Family
DX: K29.70 Gastritis, unspecified, without bleeding (principal); R10.13 Epigastric pain; R07.9 Chest pain, unspecified; Z79.899 Other long term (current) drug therapy
CPT/HCPCS: 36415; 74177; 80053; 81003; 81025; 83690; 85025; 96365; 96375; 99284; J1885; Q9967

== ENCOUNTER 2021-04-20 12:52 | Outpatient (REF) | payer MEDICAID, SELFPAY | END 2021-04-20 12:53 | disposition home or self-care (01) | LOC: HO.LAB 12:52 | PROVIDERS: PCP Nurse Practitioner Family; Visit Provider Internal Medicine | DX: Z20.822 Contact with and (suspected) exposure to COVID-19 (principal) | CPT/HCPCS: C9803; U0003; U0005 ==

== ENCOUNTER 2021-05-12 12:39 | Outpatient (REF) | payer MEDICAID, SELFPAY ==
[2021-05-12 13:07] LABS: COVID-19 Test Negative (Negative); IDNOW Serial# 08D9AD1C
== END 2021-05-12 12:40 | disposition home or self-care (01) ==
LOC: HO.LAB 12:39
PROVIDERS: PCP Nurse Practitioner Family; Visit Provider Internal Medicine
DX: Z20.822 Contact with and (suspected) exposure to COVID-19 (principal)
CPT/HCPCS: 36415; 87635; C9803

== ENCOUNTER 2021-06-29 23:09 | Emergency (ER) | payer MEDICAID, SELFPAY ==
[2021-06-29 23:45] VITALS: BP 135/84; PULSE 74; RESP 18; TEMP 36.8; O2SAT 100; BMI 32.5
--- NOTE | 2021-06-30 00:51 | ED_ITS ---
HPI - Back Pain/Injury General Chief Complaint: Back Pain/Injury Stated Complaint: Back pain Time Seen by Provider: 06/30/21 00:51 Source: patient Mode of arrival: ambulatory Limitations: no limitations History of Present Illness HPI Narrative: 31-year-old transgender male to female presents to the emergency department with 1 day of lower back pain. She states that she was at work, twisted to the side and immediately started feeling lower back pain that at times radiates into her left leg above the knee. She states she has never had any back surgeries in the past. However she has been diagnosed with multiple herniated discs in her lumbar spine few years ago when she had an MRI. She states that the pain has been constant all day, in there is nothing that makes his pain better, however certain positions such as bending and walking make it worse. She denies weakness, changes in bowel habits, numbness, tingling, paresthesias, fevers, chills, chest pain, shortness of breath. She is not IV drug user. MD elicited complaint: back pain Pertinent past history: prior back pain Onset (ago): day(s) (1) Timing: constant Severity: severe Pain scale (0-10): 10 Similar Symptoms Previously: Yes Quality: sharp Location: lumbar spine and sacrum Radiation: none Exacerbating factors: movement, walking and coughing/sneezing Relieving factors: immobilization Context: turning/twisting Associated symptoms: denies other symptoms Work related injury: Yes Related Data Previous Rx's Medication Instructions Recorded cyclobenzaprine 10 mg tablet 5 mg PO TID PRN #20 tab 08/06/20 ciprofloxacin HCl 500 mg tablet 500 mg PO BID #20 tab 11/15/20 (Cipro) phenazopyridine 200 mg tablet 200 mg PO TID PRN 2 Days #5 tab 11/15/20 (Pyridium) tramadol 50 mg tablet 50 mg PO Q6H PRN #14 tab 11/15/20 omeprazole 40 mg capsule,delayed 40 mg PO DAILY 30 Days #30 cap 04/19/21 release cyclobenzaprine 10 mg tablet 10 mg PO Q8H #20 tab 06/30/21 hydrocodone 5 mg-acetaminophen 325 1 tab PO Q6H PRN #20 tab 06/30/21 mg tablet prednisone 20 mg tablet 40 mg PO DAILY 5 Days #10 tab 06/30/21 Allergies Allergy/AdvReac Type Severity Reaction Status Date / Time oxycodone [OXYCODONE] Allergy Severe DIFFICULTY Verified 11/15/20 19:41 BREATHING adhesive tape [ADHESIVE TAPE] Allergy Unknown RASH Verified 11/15/20 19:41 Review of Systems Review of Systems: Constitutional : No Fever, No Chills, Cardiovascular : No Chest Pain, No SOB Respiratory : No Dyspnea Gastrointestinal : No abdominal pain, No changes in bowel habits Musculoskeletal : No Joint Swelling, + back pain Skin : No rash, No skin laceration Neuro : No Weakness, No Numbness, No tingling Neurologic: Reports Abnormal speech present [facility] Past Medical History Attestation statement: The following information was validated with the patient. Source: old records reviewed and nursing notes reviewed Medical History Asthma [id number] transgender person Social History Social History Alcohol intake: current Alcohol intake frequency: holidays/special occasions only Alcohol type: wine Advance Directives: No Patient : No Physical Exam Vital Signs: Vital Signs: Last Vital Signs Temp 98.2 F 06/29/21 23:45 Pulse 74 06/29/21 23:45 Resp 18 06/29/21 23:45 BP 135/84 06/29/21 23:45 Pulse Ox 100 06/29/21 23:45 Body Mass Index 32.5 Const: General: cooperative Nutritional Appearance: average body habitus Orientation/consciousness: oriented to person, oriented to place and oriented to time Limitations: no limitations HENMT: Head: Yes normal to inspection Mouth: Normal oral and palatal mucosa present Eyes: General: appearance normal, both eyes and all related structures Pupils: Equal, round and reactive pupils present EOM: EOMs intact bilaterally Neck: Neck: Yes normal visual inspection and Yes full ROM Thyroid: Thyroid normal Lymphatic: no lymphadenopathy noted Resp: Effort & Inspection: normal respiratory effort and able to speak in complete sentences Auscultation: clear to auscultation bilaterally Cardio: Palpation: normal PMI Rate: regular rate Rhythm: regular rhythm and abnormal rhythm Heart sounds: S1 normal heart sound present and S2 normal heart sound present GI: Inspection: Yes normal to inspection Palpation (GI): Soft to palpation and nontender : General: Yes no CVA tenderness Back/Spine/Pelvis: Other: No midline tenderness. Patient able to ambulate with a steady gait. Patient able to go on her Tippy toes, and heels. Patient able to balance on bilateral feet, causes her discomfort however. Back: no CVA tenderness Thoracic/Lumbar Spine: thoraco-lumbar ROM normal (Pain with range of motion.), straight leg raise negative bilaterally, paraspinal muscle tenderness bilaterally and on the left greater than right and No Thoracic/lumbar scoliosis Neuro: General: oriented to person, oriented to place and oriented to time Cranial nerves: Yes CN's II-XII intact bilaterally and Yes Equal, round and reactive pupils present Cognition (Neuro): normal cognition Speech: Abn ormal speech present Gait exam (Neuro): Normal gait present Motor exam (neuro): 5/5 motor strength present throughout Sensory Exam: Normal double simultaneous stimulation for sensation Extrem: General: Yes normal to inspection, Yes full ROM and Yes no pedal edema Psych: Mental Status: mental status grossly normal MDM - Back Pain/Injury MDM Narrative Medical decision making narrative: 31-year-old transgender male to female presents to the emergency department with 1 day of lower back pain has been progressively worsening. She states that the pain is constant in nature, and time radiates into her left leg. She states she was at work, quickly turned and immediately started feeling pain in her lower back. She states she has gotten this pain before years ago. She has been diagnosed with multiple herniated discs in the lumbar spine. Upon physical examination there is no weakness noted, no sensory or motor def icits to upper and lower extremities. There is pain to palpation in the lumbar region over the paraspinous muscles left side greater than right. No midline tenderness. Negative straight leg raise. Full range of motion, however painful. Patient is able the balance and bilateral legs, and is able to stand on her Tippy toes and heels. Patient's vitals are within normal limits, no fever noted, patient is not an IV drug abuser not concerned for an epidural abscess. History and physical is not consistent with cauda equina. Most likely lumbar muscle spasms. Based of hx and physical imaging is not needed Will D/C patient home with steroids, pain medication Discharge Plan Discharge Clinical Impression: Muscle spasm of back Patient Disposition: Home, Self-Care Instructions: Muscle Spasm (ED), Back Pain (ED), Heat Pack Application (ED) Additional Instructions: If possible, try to find a primary care provider. If symptoms worsen, or do not improve within a week follow-up with [facility] Patient to the emergency department with new or worsening symptoms Prescriptions: New cyclobenzaprine 10 mg tablet 10 mg PO Q8H Qty: 20 RF: 0 hydrocodone-acetaminophen 5-325 mg tablet 1 tab PO Q6H PRN (Reason: pain) Qty: 20 RF: 0 prednisone 20 mg tablet 40 mg PO DAILY 5 Days Qty: 10 RF: 0 No Action cyclobenzaprine 10 mg tablet 5 mg PO TID PRN (Reason: muscle spasm) Qty: 20 RF: 0 ciprofloxacin HCl [Cipro] 500 mg tablet 500 mg PO BID Qty: 20 RF: 0 phenazopyridine [Pyridium] 200 mg tablet 200 mg PO TID PRN (Reason: pain) 2 Days Qty: 5 RF: 0 tramadol 50 mg tablet 50 mg PO Q6H PRN (Reason: pain) Qty: 14 RF: 0 omeprazole 40 mg capsule,delayed release(DR/EC) 40 mg PO DAILY 30 Days Qty: 30 RF: 0 Stand Alone Forms: Work/School Release
--- NOTE | 2021-06-30 01:15 | PC.NURSE ---
CALLED [facility]. GAVE REPORT. PT WITH BACK PAIN NEEDS MEDS AND DISCHARGE.
[2021-06-30] MEDS: Cyclobenzaprine HCl 10 MG TABLET PO (02:02)
[2021-06-30] MEDS: dexAMETHasone 2 MG TABLET 10 MG PO (02:02)
[2021-06-30] MEDS: Ketorolac Tromethamine 60 MG/2 ML VIAL IM (02:03)
--- NOTE | 2021-06-30 02:20 | PC.NURSE ---
PATIENT ASKING TO HAVE HER PRESCRIPTIONS CHANGED TO ANOTHER PHARMACY PREFERRED PHARMACY NOW IN THE COMPUTER [facility] IN [place]. INFORMING PATIENT THAT I WOULD HAVE THE MD ATTEMPT TO SEND TO THE PRESCRIPTIONS TO THE NEW PHARMACY. PATIENT DISCHARGED. LOOKING FOR PROVIDER WHO SAY PATIENT, DR. MONROY LEAVING FOR THE NIGHT. ASKING OF DR. GRIFFIN TO SEND THE PRESCRIPTIONS OVER. DR. GRIFFIN IS UNABLE TO TRANSFER PRESCRIPTIONS OVER TO NEW PHARMACY. ATTEMPTING TO CALL PATIENT TO INFORM THEM, WAS UNABLE TO GET THROUGH AT THIS TIME.
== END 2021-06-30 02:25 | disposition home or self-care (01) ==
PROVIDERS: Emergency Provider Internal Medicine
DX: M62.830 Muscle spasm of back (principal); Z79.899 Other long term (current) drug therapy
CPT/HCPCS: 96372; 99283; 99284; J1885; J8540

== ENCOUNTER 2021-11-29 23:09 | Emergency (ER) | payer MEDICAID, SELFPAY ==
--- NOTE | ~2021-11-29 | XR_ITS ---
EXAMINATION: XR WRIST, RIGHT CLINICAL INFORMATION: Fall with wrist pain COMPARISON: None TECHNIQUE: PA, lateral, and oblique views of the right wrist. FINDINGS: The bones and soft tissues are normal. No fracture. Alignment is anatomic with normal joint spaces. No erosions or abnormal soft tissue calcifications. XR/XR wrist RT 2V IMPRESSION: Normal right wrist.
[2021-11-29 23:13] VITALS: BP 148/96; PULSE 68; RESP 16; TEMP 37.1; O2SAT 100; BMI 34.5
--- NOTE | 2021-11-29 23:27 | ED.EXTPRO ---
HPI - Extremity Problem General Chief complaint: Extremity Injury, Upper Stated complaint: wrist pain from fall Time Seen by Provider: 11/29/21 23:27 Source: patient Mode of arrival: ambulatory Limitations: no limitations History of Present Illness HPI Narrative: Patient is a 31 year old female presenting to the emergency department today with right wrist pain. Patient states that last Monday, they fell on their right wrist and were evaluated at [facility] and told they did not have any acute fractures. Patient denies hitting her head with the incident. Patient denies any loss of conciousness with the incident. Patient states that the pain is only in the right wrist, does not radiate anywhere, is a dull pain, and he rates it at a 5/10. Patient denies any dizziness, lightheadedness, abdominal pain, nausea, vomiting, fever, chills, blurry vision, double vision, loss of vision, chest pain, difficulty breathing, shortness of breath, back pain, night sweats, pain with urination, increased urinary frequency, increased urinary urgency, blood in her urine or stool, syncope or a near syncopal episode, bowel incontinence, bladder incontinence, bowel retention, bladder retention, or any other complaints at this time. MD Complaint: extremity pain Onset (ago): day(s) Pain Consistency: constant Location: right and upper extremity Severity scale (1-10): 5 Quality: dull Radiation: none Relieving factors: nothing Exacerbating factors: range of motion Associated symptoms: denies other symptoms Related Data Previous Rx's Medication Instructions Recorded cyclobenzaprine 10 mg tablet 5 mg PO TID PRN #20 tab 08/06/20 ciprofloxacin HCl 500 mg tablet 500 mg PO BID #20 tab 11/15/20 (Cipro) phenazopyridine 200 mg tablet 200 mg PO TID PRN 2 Days #5 tab 11/15/20 (Pyridium) tramadol 50 mg tablet 50 mg PO Q6H PRN #14 tab 11/15/20 omeprazole 40 mg capsule,delayed 40 mg PO DAILY 30 Days #30 cap 04/19/21 release cyclobenzaprine 10 mg tablet 10 mg PO Q8H #20 tab 06/30/21 hydrocodone 5 mg-acetaminophen 325 1 tab PO Q6H PRN #20 tab 06/30/21 mg tablet prednisone 20 mg tablet 40 mg PO DAILY 5 Days #10 tab 06/30/21 Allergies Allergy/AdvReac Type Severity Reaction Status Date / Time oxycodone [OXYCODONE] Allergy Severe DIFFICULTY Verified 11/15/20 19:41 BREATHING adhesive tape [ADHESIVE TAPE] Allergy Unknown RASH Verified 11/15/20 19:41 Review of Systems Constitutional: Constitutional: Reports no additional constitutional complaints, Denies chills, Denies fever(s) and Denies night sweats Eyes: Eyes: Reports no additional eye complaints, Denies blurry vision, Denies change in vision, Denies diplopia, Denies eye discharge, Denies loss of vision and Denies eye pain ENT: Denies dizziness Cardiovascular: Cardiovascular: Reports no additional cardiovascular complaints, Denies chest pain, Denies lightheadedness, Denies Loss of Consciousness and Denies dyspnea Respiratory: Respiratory: Reports no additional respiratory complaints and Denies dyspnea Gastrointestinal: Gastrointestinal: Reports no additional gastrointestinal complaints, Denies abdominal pain, Denies melena, Denies hematochezia, Denies change in bowel habits and Denies change in stool character Genitourinary: Genitourinary: Denies hematuria, Denies urinary frequency, Denies dysuria, Denies urinary incontinence, Denies urinary hesitancy and Denies urinary urgency Musculoskeletal: Musculoskeletal: Reports no additional musculoskeletal complaints, Denies numbness and Denies tingling Comments: right wrist pain Neurologic: Denies dizziness, Denies loss of vision, Denies numbness and Denies tingling Psychiatric: Psychiatric: Reports no additional psychiatric complaints Endocrine: Endocrine: Reports no additional endocrine complaints Hematologic/Lymphatic: Hematologic/Lymphatic: Reports no additional hematologic/lymphatic complaints Allergic/Immunologic: Allergic/Immunologic: Reports no additional allergic/immunologic complaints [facility] Past Medical History Attestation statement: The following information was validated with the patient. Source: old records reviewed Medical History Asthma [id number] transgender person Social History Social History Alcohol intake: current Alcohol intake frequency: holidays/special occasions only Alcohol type: wine Advance Directives: No Patient : No Physical Exam Vital Signs: Vital Signs: Last Vital Signs Temp 98.7 F 11/29/21 23:13 Pulse 68 11/29/21 23:13 Resp 16 11/29/21 23:13 BP 148/96 H 11/29/21 23:13 Pulse Ox 100 11/29/21 23:13 BMI result Body Mass Index 34.5 Const: General: cooperative, no acute distress, alert and awake Nutritional Appearance: well nourished Orientation/consciousness: patient oriented x3 Limitations: no limitations HENMT: Head: Yes normal to inspection and Yes atraumatic Ears: hearing grossly normal bilaterally and external ears normal General nose exam: Normal external nose present, no nasal discharge noted and no epistaxis Face and sinus: Yes normal facial exam, No abrasion and No laceration Mouth: Normal oral and palatal mucosa present, no drooling and no muffled voice Eyes: General: appearance normal, both eyes and all related structures Periorbital: periorbital findings normal Eyelids: Yes eyelids normal Conjunctivae: conjunctivae normal Pupils: Equal, round and reactive pupils present EOM: EOMs intact bilaterally Neck: Neck: Yes normal visual inspection, Yes full ROM and Yes no lymphadenopathy Chest: Chest palpation & inspection: normal inspection of the chest Resp: Effort & Inspection: normal respiratory effort and able to speak in complete sentences Auscultation: clear to auscultation bilaterally Cardio: Rate: regular rate Rhythm: regular rhythm GI: Inspection: Yes normal to inspection Neuro: General: patient oriented x3 and moves all extremities Cranial nerves: Yes Equal, round and reactive pupils present Cognition (Neuro): normal cognition Motor exam (neuro): 5/5 motor strength present throughout Sensory Exam: Normal double simultaneous stimulation for sensation Coordination: [id number] test normal Extrem: Other: pain to palpation of the right dorsal wrist with mild bruising General: Yes normal to inspection, Yes full ROM and Yes capillary refill normal Psych: Appearance: grossly normal Mental Status: mental status grossly normal Affect: normal affect Attitude: cooperative Thought process: Normal thought process present Thought content: Normal thought content present Insight: Good insight present (Psych) MDM - Extremity (Nontraumatic) MDM Narrative Medical decision making narrative: Patient is a 31 year old female presenting to the emergency department today with right wrist pain. Patient's physical exam showed tenderness to palpation of the right dorsal wrist and mild bruising to the right dorsal wrist. Patient's ROM, circulation, and strength were intact to the right upper extremity. Patient's right wrist x-ray showed no acute process. I explained my physical exam findings as well as all test results to the patient. I answered all questions asked by the patient. I stressed the importance of the patient taking her medication as prescribed. I stressed the importance of the patient following up with her primary care provider and an orthopedic doctor. I stressed the importance of the patient keeping her brace on her right wrist. I stressed the importance of the patient returning to the emergency department immediately if her symptoms were to worsen or if she were to develop any dizziness, shortness of breath, difficulty breathing, chest pain, blurry vision, loss of vision, nausea, vomiting, abdominal pain, fever, chills, back pain, or any other complaints. Patient verbalized agreement and understanding with this treatment plan and discharge. Differential Diagnosis Differential diagnosis: Unlikely cellulitis (fracture, sprain, strain) Medical Records Attestation: I reviewed the patient's medical records. Imaging Data Right wirst x-ray: Attestation: I personally reviewed and interpreted this imaging study as follows: My impression: No acute fracture. Radiologist's impression: EXAMINATION: XR WRIST, RIGHT CLINICAL INFORMATION: Fall with wrist pain? COMPARISON: None? TECHNIQUE: PA, lateral, and oblique views of the right wrist. FINDINGS: The bones and soft tissues are normal. No fracture. Alignment is anatomic with normal joint spaces. No erosions or abnormal soft tissue calcifications.? XR/XR wrist RT 2V IMPRESSION: Normal right wrist. Dictated By: BLANCA CARDONA MD Signed By: Electronically signed by BLANCA CARDONA MD 11/29/21 9849 Discharge Plan Discharge Clinical Impression: Pain in wrist Patient Disposition: Home, Self-Care Instructions: Wrist Injury (ED) Additional Instructions: Call to schedule a follow up appointment with an Orthopedic provider. Follow up with your primary care provider. Return to the emergency department immediately if your symptoms worsen or if you develop any dizziness, shortness of breath, difficulty breathing, chest pain, blurry vision, loss of vision, nausea, vomiting, abdominal pain, fever, chills, back pain, or any other complaints. Prescriptions: No Action cyclobenzaprine 10 mg tablet 5 mg PO TID PRN (Reason: muscle spasm) Qty: 20 0RF ciprofloxacin HCl [Cipro] 500 mg tablet 500 mg PO BID Qty: 20 0RF phenazopyridine [Pyridium] 200 mg tablet 200 mg PO TID PRN (Reason: pain) 2 Days Qty: 5 0RF tramadol 50 mg tablet 50 mg PO Q6H PRN (Reason: pain) Qty: 14 0RF omeprazole 40 mg capsule,delayed release(DR/EC) 40 mg PO DAILY 30 Days Qty: 30 0RF cyclobenzaprine 10 mg tablet 10 mg PO Q8H Qty: 20 0RF hydrocodone-acetaminophen 5-325 mg tablet 1 tab PO Q6H PRN (Reason: pain) Qty: 20 0RF prednisone 20 mg tablet 40 mg PO DAILY 5 Days Qty: 10 0RF Referrals: Samantha Alvarez MD [Primary Care Provider] - 2 days Dorota Nickerson MD [Physician] - 2 days Print Language: Georgian
== END 2021-11-30 00:32 | disposition home or self-care (01) ==
PROVIDERS: Emergency Provider Internal Medicine; PCP Family Medicine
DX: M25.531 Pain in right wrist (principal); F64.0 Transsexualism
CPT/HCPCS: 73100; 99283

== ENCOUNTER → 2021-12-15 08:23 | Outpatient (BNVA) | payer MEDICAID, SELFPAY | PROVIDERS: PCP Family Medicine; Visit Provider Physician Assistant | DX: G56.21 Lesion of ulnar nerve, right upper limb (principal) | CPT/HCPCS: 99202 ==

== ENCOUNTER 2022-04-11 21:46 | Emergency (ER) | payer OTHER, MEDICAID, SELFPAY ==
--- NOTE | ~2022-04-11 | XR_ITS ---
EXAMINATION: XR SHOULDER, LEFT CLINICAL INFORMATION: Shoulder pain with limited range of motion COMPARISON: 10/13/2019 TECHNIQUE: Three views of the left shoulder. FINDINGS: The bones and soft tissues are normal. No fracture. Glenohumeral and acromioclavicular alignment is anatomic with normal joint space. No abnormal soft tissue calcifications. The visualized ribs appear intact. XR/XR shoulder LT min 2V IMPRESSION: Normal left shoulder.
[2022-04-11 21:58] VITALS: BP 138/92; PULSE 64; RESP 18; TEMP 37.1; O2SAT 98; BMI 34.0
[2022-04-12 00:22] VITALS: BP 138/88; PULSE 66; O2SAT 100
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
== END 2022-04-12 01:03 | disposition home or self-care (01) ==
PROVIDERS: Emergency Provider Internal Medicine; PCP Family Medicine
DX: S49.92XA Unspecified injury of left shoulder and upper arm, initial encounter (principal); Y04.2XXA Assault by strike against or bumped into by another person, initial encounter; F64.0 Transsexualism; Y93.9 Activity, unspecified; Y92.9 Unspecified place or not applicable; Y99.9 Unspecified external cause status
CPT/HCPCS: 73030; 99283

== ENCOUNTER 2022-08-03 14:14 | Emergency (ER) | payer MEDICAID, SELFPAY ==
[2022-08-03 14:31] VITALS: BP 155/95; PULSE 86; RESP 18; O2SAT 98; BMI 34.7
--- NOTE | 2022-08-03 14:38 | ED.EYEPROB ---
HPI - Eye Problem General Chief complaint: Eye Problems Stated complaint: L eye swollen. no inj Time Seen by Provider: 08/03/22 14:33 Source: patient Mode of arrival: ambulatory Limitations: no limitations History of Present Illness HPI Narrative: left upper eyelid pain for 1 day. With redness and tenderness no discharge. Related Data Previous Rx's Medication Instructions Recorded cyclobenzaprine 10 mg tablet 5 mg PO TID PRN muscle spasm #20 08/06/20 tabs ciprofloxacin HCl 500 mg tablet 500 mg PO BID #20 tabs 11/15/20 (Cipro) phenazopyridine 200 mg tablet 200 mg PO TID PRN pain 2 days #5 11/15/20 (Pyridium) tabs tramadol 50 mg tablet 50 mg PO Q6H PRN pain #14 tabs 11/15/20 omeprazole 40 mg capsule,delayed 40 mg PO DAILY 30 days #30 caps 04/19/21 release cyclobenzaprine 10 mg tablet 10 mg PO Q8H #20 tabs 06/30/21 hydrocodone 5 mg-acetaminophen 325 1 tab PO Q6H PRN pain #20 tabs 06/30/21 mg tablet prednisone 20 mg tablet 40 mg PO DAILY 5 days #10 tabs 06/30/21 erythromycin 5 mg/gram (0.5 %) eye 0.5 inch ophthalmic (eye) QID #50 08/03/22 ointment grams Allergies Allergy/AdvReac Type Severity Reaction Status Date / Time oxycodone [OXYCODONE] Allergy Severe DIFFICULTY Verified 11/15/20 19:41 BREATHING adhesive tape [ADHESIVE TAPE] Allergy Unknown RASH Verified 11/15/20 19:41 Review of Systems Review of Systems: all other systems are reviewed and are negative Constitutional: Reports as per HPI and Reports no additional constitutional complaints Eyes: Reports as per HPI and Reports no additional eye complaints Reports system reviewed and no additional complaints, except as documented Cardiovascular: Reports as per HPI and Reports no additional cardiovascular complaints Respiratory: Reports as per HPI and Reports no additional respiratory complaints Gastrointestinal: Reports as per HPI and Reports no additional gastrointestinal complaints Genitourinary: Reports no additional female genitourinary complaints Musculoskeletal: Reports no additional musculoskeletal complaints Skin/Breast: Reports system reviewed and no additional complaints, except as docu Psychiatric: Reports no additional psychiatric complaints Endocrine: Reports no additional endocrine complaints Hematologic/Lymphatic: Reports no additional hematologic/lymphatic complaints Allergic/Immunologic: Reports no additional allergic/immunologic complaints Reports system reviewed and no additional complaints, except as documented and Reports Abnormal speech present [facility] Past Medical History Medical History Asthma [id number] transgender person Social History Social History Alcohol intake: current Alcohol intake frequency: holidays/special occasions only Alcohol type: wine Current occupational status: employed Current occupation: [employer] Physical Exam Vital Signs: Vital Signs: Last Vital Signs Pulse 86 08/03/22 14:31 Resp 18 08/03/22 14:31 BP 155/95 H 08/03/22 14:31 Pulse Ox 98 08/03/22 14:31 O2 Del Method 08/03/22 14:31 BMI result Body Mass Index 34.7 Vital signs have been reviewed as appeared to be correct. Blood pressure Slightly elevated. Heart rate normal. Respiration rate normal. Temperature normal. Oxygen saturation normal. Appearance: Alert. Oriented X3. No acute distress. Head: Normal external exam. Normocephalic. Atraumatic. No Tran signs noted. No raccoon eyes noted Eyes: PERRLA. EOMI. Conjunctiva and sclera normal. Left upper eyelid swollen tenderness with stye (hordeolum) on temporal aspect of the eye lid. visual acuity right 20 /40, left 20/70. ENT: TM's Normal. Pharynx normal. Uvula midline. Moist mucous membranes. No trismus noted. No drooling noted. No muffled voice noted. Neck: Normal inspection. Neck supple. FROM. No adenopathy. Thyroid Normal. No meningeal signs. No neck mass noted. CVS: Normal heart rate and rhythm. Heart sound normal. No murmurs noted. Pulses normal throughout. Respiratory: No respiratory distress. Painless inspiration. Breath sounds normal. No wheezes/rales/rhonchi noted. Chest nontender. No accessory muscle usage noted or decreased air movement noted. Abdomen: Soft and nontender. Bowel sounds normal in all 4 quadrants. No distention noted. No organomegaly noted. No visible injury noted. Back: No CVA tenderness. Full range of motion noted. Skin: Skin warm and dry. Normal skin color. Normal skin turgor. No rashes/lesions/lacerations noted. Extremities: No lower extremity edema. Extremities exhibit normal range of motion. Extremities nontender. Neuro: Oriented X 3. Cranial nerve exam: II-XII are grossly intact No motor deficit. No sensory deficit. Reflexes normal. Course Course Course Narrative: left upper eyelid infected hordeolum. Warm compression/ erythromycin ointment. Discharge Plan Discharge Clinical Impression: Sowmya Patient Disposition: Home, Self-Care Instructions: Katerina (ED) Additional Instructions: apply warm compression to the left eye 3 to 5 times a day for 30 minutes each. Prescriptions: New erythromycin 5 mg/gram (0.5 %) ointment 0.5 inch ophthalmic (eye) QID Qty: 50 0RF Rx Instructions: Apply half-inch ribbon under upper left eyelid every 6 hours when you awake No Action cyclobenzaprine 10 mg tablet 5 mg PO TID PRN (Reason: muscle spasm) Qty: 20 0RF ciprofloxacin HCl [Cipro] 500 mg tablet 500 mg PO BID Qty: 20 0RF phenazopyridine [Pyridium] 200 mg tablet 200 mg PO TID PRN (Reason: pain) 2 Days Qty: 5 0RF tramadol 50 mg tablet 50 mg PO Q6H PRN (Reason: pain) Qty: 14 0RF omeprazole 40 mg capsule,delayed release(DR/EC) 40 mg PO DAILY 30 Days Qty: 30 0RF cyclobenzaprine 10 mg tablet 10 mg PO Q8H Qty: 20 0RF hydrocodone-acetaminophen 5-325 mg tablet 1 tab PO Q6H PRN (Reason: pain) Qty: 20 0RF prednisone 20 mg tablet 40 mg PO DAILY 5 Days Qty: 10 0RF Referrals: Ry Alvarez [Physician] - Samantha Alvarez MD [Primary Care Provider] -
== END 2022-08-03 14:54 | disposition home or self-care (01) ==
LOC: HO.ED 14:50
PROVIDERS: Emergency Provider Emergency Medicine; PCP Family Medicine
DX: H00.014 Hordeolum externum left upper eyelid (principal); H57.12 Ocular pain, left eye; F64.0 Transsexualism
CPT/HCPCS: 99282; 99283

== ENCOUNTER 2023-08-12 01:42 | Emergency (ER) | payer MEDICAID, SELFPAY ==
[2023-08-12 01:54] VITALS: BP 149/104; PULSE 60; RESP 18; TEMP 36.6; O2SAT 98; BMI 34.0
[2023-08-12 02:55] LABS: Influenza A PCR NEGATIVE (Negative); Influenza B PCR NEGATIVE (Negative); Resp Syncy Virus RNA Qual PCR NEGATIVE (Negative); SARS COV2 PCR INHOUSE NEGATIVE (Negative)
--- NOTE | 2023-08-12 03:00 | ED.URI ---
HPI - URI/Sore Throat General Chief Complaint: Upper Respiratory Symptoms Stated Complaint: Congestion, Cough, Light headed Time Seen by Provider: 08/12/23 02:59 Source: patient Mode of arrival: ambulatory Limitations: no limitations History of Present Illness HPI Narrative: Patient has seasonal allergies with history of asthma been having nasal congestion cough for last few days getting worse last 2 days with mucopurulent phlegm no fever no chills feels chest tight using inhaler without much response patient family member was sick at home with similar symptoms patient does have body aches afebrile on arrival saturating 98% on room air Related Data Previous Rx's Medication Instructions Recorded cyclobenzaprine 10 mg tablet 5 mg (1/2 x 10 mg) PO TID PRN 08/06/20 muscle spasm #20 tabs ciprofloxacin HCl 500 mg tablet 500 mg PO BID #20 tabs 11/15/20 (Cipro) phenazopyridine 200 mg tablet 200 mg PO TID PRN pain 2 days #5 11/15/20 (Pyridium) tabs tramadol 50 mg tablet 50 mg PO Q6H PRN pain #14 tabs 11/15/20 omeprazole 40 mg capsule,delayed 40 mg PO DAILY 30 days #30 caps 04/19/21 release cyclobenzaprine 10 mg tablet 10 mg PO Q8H #20 tabs 06/30/21 hydrocodone 5 mg-acetaminophen 325 1 tab PO Q6H PRN pain #20 tabs 06/30/21 mg tablet prednisone 20 mg tablet 40 mg (2 x 20 mg) PO DAILY 5 days 06/30/21 #10 tabs erythromycin 5 mg/gram (0.5 %) eye 0.5 inch ophthalmic (eye) QID #50 08/03/22 ointment grams albuterol sulfate 90 mcg/actuation 2 puff inhalation Q4-6H PRN 08/12/23 aerosol inhaler (ProAir HFA) shortness of breath or wheezing #8.5 grams amoxicillin 875 mg-potassium 1 tab PO BID #20 tabs 08/12/23 clavulanate 125 mg tablet benzonatate 200 mg capsule 200 mg PO TID PRN cough #30 caps 08/12/23 prednisone 20 mg tablet 40 mg (2 x 20 mg) PO DAILY #10 tabs 08/12/23 Allergies Allergy/AdvReac Type Severity Reaction Status Date / Time oxycodone [OXYCODONE] Allergy Severe DIFFICULTY Verified 11/15/20 19:41 BREATHING adhesive tape [ADHESIVE TAPE] Allergy Unknown RASH Verified 11/15/20 19:41 Review of Systems Review of Systems: Yes all other systems are reviewed and are negative [facility] Past Medical History Medical History Asthma [id number] transgender person Social History Alcohol intake: current Alcohol intake frequency: holidays/special occasions only Alcohol type: wine Advance Directives: No Advance Directives Information Provided: Yes Current occupational status: employed Current occupation: [employer] Physical Exam Vital Signs: Vital Signs: Last Vital Signs Temp 97.9 F 08/12/23 01:54 Pulse 55 08/12/23 03:18 Resp 19 08/12/23 03:18 BP 149/104 H 08/12/23 01:54 Pulse Ox 97 08/12/23 03:18 O2 Del Method Room Air 08/12/23 03:18 BMI result Body Mass Index 34.0 Appearance: Alert. Oriented X3. No acute distress. HEENT: Pharynx normal. Oral Mucosa moist mucopurulent secretions both nares Neck: Normal inspection. Neck supple. CVS: Normal heart rate and rhythm. Pulses normal. Respiratory: No respiratory distress. Equal air entry bilateral, prolonged expiration Abdomen: Soft and nontender. Bowel sounds are present, Skin: Skin warm and dry. Normal skin color. Normal skin turgor. Extremities: No lower extremity edema. No calf tenderness Neuro: Oriented X 3. Medications Administered Discontinued Medications Generic Name Dose Route Start Last Admin Trade Name Freq PRN Reason Stop Dose Admin Amoxicillin/Clavulanate Potassium 875 mg 08/12/23 03:20 08/12/23 03:33 Amoxicillin/Potassium Clav 875 Mg Tablet PO 08/12/23 03:21 875 mg ONCE ONE Administration Benzonatate 200 mg 08/12/23 03:20 08/12/23 03:33 Benzonatate 100 Mg Capsule PO 08/12/23 03:21 200 mg ONCE ONE Administration Prednisone 40 mg 08/12/23 03:20 08/12/23 03:33 Prednisone 20 Mg Tablet PO 08/12/23 03:21 40 mg ONCE ONE Administration Medical Decision Making Medical Decision Making [facility] Narrative: Patient with acute rhinosinusitis with bronchitis discharge patient home on steroids and antibiotics Lab Data MDM Lab Attestation statement: I reviewed the patient's lab results. Labs: Lab Results 08/12/23 Range/Units 02:14 Influenza Type A (PCR) NEGATIVE (Negative) Influenza Type B (PCR) NEGATIVE (Negative) RSV RNA Qual (PCR) NEGATIVE (Negative) SARS-CoV-2 RNA (RT-PCR) NEGATIVE (Negative) Discharge Plan Discharge Clinical Impression: Bronchitis Patient Disposition: Home, Self-Care Instructions: Acute Bronchitis (ED) Additional Instructions: Take antibiotic and prednisone as prescribed Cough drops as prescribed Use your inhaler 2 puffs every 4-6 hours as needed Follow with PCP Prescriptions: New benzonatate 200 mg capsule 200 mg PO TID PRN (Reason: cough) Qty: 30 0RF albuterol sulfate [ProAir HFA] 90 mcg/actuation HFA aerosol inhaler 2 puff inhalation Q4-6H PRN (Reason: shortness of breath or wheezing) Qty: 8.5 0RF amoxicillin-pot clavulanate 875-125 mg tablet 1 tab PO BID Qty: 20 0RF prednisone 20 mg tablet 40 mg PO DAILY Qty: 10 0RF No Action cyclobenzaprine 10 mg tablet 5 mg PO TID PRN (Reason: muscle spasm) Qty: 20 0RF ciprofloxacin HCl [Cipro] 500 mg tablet 500 mg PO BID Qty: 20 0RF phenazopyridine [Pyridium] 200 mg tablet 200 mg PO TID PRN (Reason: pain) 2 Days Qty: 5 0RF tramadol 50 mg tablet 50 mg PO Q6H PRN (Reason: pain) Qty: 14 0RF omeprazole 40 mg capsule,delayed release(DR/EC) 40 mg PO DAILY 30 Days Qty: 30 0RF cyclobenzaprine 10 mg tablet 10 mg PO Q8H Qty: 20 0RF hydrocodone-acetaminophen 5-325 mg tablet 1 tab PO Q6H PRN (Reason: pain) Qty: 20 0RF prednisone 20 mg tablet 40 mg PO DAILY 5 Days Qty: 10 0RF erythromycin 5 mg/gram (0.5 %) ointment 0.5 inch ophthalmic (eye) QID Qty: 50 0RF Rx Instructions: Apply half-inch ribbon under upper left eyelid every 6 hours when you awake Stand Alone Forms: Work/School Release Interventions: ED Discharge Assessment Last Done: 08/12/23 03:36 Discharge Date/Time: 08/12/23 03:37
[2023-08-12 03:18] VITALS: PULSE 55; RESP 19; O2SAT 97
[2023-08-12] MEDS: Benzonatate 100 MG CAPSULE 200 MG PO (03:33)
[2023-08-12] MEDS: Amoxicillin/Potassium Clav 875 MG TABLET PO (03:33)
[2023-08-12] MEDS: predniSONE 20 MG TABLET 40 MG PO (03:33)
== END 2023-08-12 03:37 | disposition home or self-care (01) ==
PROVIDERS: Emergency Provider Internal Medicine; PCP Family Medicine
DX: J40 Bronchitis, not specified as acute or chronic (principal); Z20.822 Contact with and (suspected) exposure to COVID-19; Z20.828 Contact with and (suspected) exposure to other viral communicable diseases; F64.0 Transsexualism; Z79.899 Other long term (current) drug therapy
CPT/HCPCS: 0241U; 99283; 99284

== ENCOUNTER 2023-08-26 08:43 | Emergency (ER) | payer MEDICAID, SELFPAY ==
--- NOTE | ~2023-08-26 | XR_ITS ---
EXAMINATION: XR CHEST CLINICAL INFORMATION: Chest pain COMPARISON: Previous chest x-ray November 2018 TECHNIQUE: 2 views of the chest were obtained. FINDINGS: No significant abnormality is noted involving the heart, lungs, mediastinum, bony thorax or soft tissues. XR/XR chest 2V IMPRESSION: Unremarkable examination.
--- NOTE | 2023-08-26 08:45 | ECG_ITS ---
Test Reason : cp Blood Pressure : / mmHG Vent. Rate : 071 BPM Atrial Rate : 071 BPM P-R Int : 154 ms QRS Dur : 092 ms QT Int : 376 ms P-R-T Axes : 038 010 041 degrees QTc Int : 408 ms Normal sinus rhythm Nonspecific T wave abnormality Abnormal ECG When compared with ECG of 19-JUN-2020 18:49, Nonspecific T wave abnormality now evident in Lateral leads Referred By: Generic ED Physician Electronically Signed By:NOEMI REN
[2023-08-26 08:50] VITALS: BP 154/94; PULSE 73; RESP 18; TEMP 36.3; O2SAT 100; BMI 35.3
[2023-08-26 09:03] LABS: MANUAL DIFF FLAG NO
[2023-08-26 09:06] LABS: Basophils Absolute Auto 0.1 X10*3/uL (0.0-0.2); Basophils Percent Auto 0.7 % (0-2); Eosinophils Absolute Auto 0.1 X10*3/uL (0.0-0.4); Eosinophils Percent Auto 1.7 % (0-4); Hematocrit 41.8 % (37.0-47.0); Hemoglobin 13.4 g/dl (12.0-16.0); Imm Gran Abs Auto 0.03 X10*3/uL (0.00-0.03); Imm Gran Pct Auto 0.4 % (0.0-0.4); Lymphocytes Absolute Auto 2.1 X10*3/uL (1.2-4.9); Lymphocytes Percent Auto 27.6 % (20-40); Mean Corpuscular HGB Conc 32.1 g/dl (31.0-35.0); Mean Corpuscular Volume 87.3 fL (80.0-98.0); Mean Platelet Volume 11.1 fL (9.4-12.3); Monocytes Absolute Auto 0.6 X10*3/uL (0.1-1.2); Monocytes Percent Auto 7.6 % (2-11); Neutrophils Absolute Auto 4.7 x10*3/uL (2.0-8.3); Platelet Count 228 X10*3/uL (160-400); Red Blood Count 4.79 X10*6/uL (4.20-5.50); White Blood Count 7.6 X10*3/uL (4.8-10.8)
[2023-08-26 09:16] LABS: Anion Gap 13 (12-20); Blood Urea Nitrogen 14 mg/dL (9-16); Calcium 9.6 mg/dL (8.4-10.2); Carbon Dioxide 24 mmol/L (22-29); Chloride 109 mmol/L (96-108); Creatinine Clr Calc Pharmacy 120.3; Estimated Glomerular Filt Rate > 60; Glucose Random 90 mg/dL (60-115); Potassium 4.8 mmol/L (3.3-5.1); Sodium 141 mmol/L (135-145)
[2023-08-26 09:26] LABS: Troponin-I High Sensitivity < 2.7 ng/L (<3.5-17.0)
[2023-08-26 10:58] LABS: Influenza A PCR NEGATIVE (Negative); Influenza B PCR NEGATIVE (Negative); Resp Syncy Virus RNA Qual PCR NEGATIVE (Negative); SARS COV2 PCR INHOUSE NEGATIVE (Negative)
--- NOTE | 2023-08-26 11:01 | ED_ITS ---
HPI - Chest Pain General Chief Complaint: Chest Pain Stated Complaint: chest pain Time Seen by Provider: 08/26/23 10:44 Source: patient Mode of arrival: ambulatory Limitations: no limitations History of Present Illness HPI narrative: Patient is a 33-year-old individual, transgender male to female, presenting to emergency department for evaluation of chest pain. Pain is described to the lower substernal region reportedly of sudden onset approximately 45 minutes prior to arrival described as a sharp stabbing pain that has been constant in its onset but now is a aching pain. Reports onset was while at rest. Initially had nausea but this has resolved. Denies fevers, chills, neck pain, neck stiffness, cough, shortness of breath, difficulty breathing, vomiting, abdominal pain, numbness or tingling of the extremities. Patient reports a significant family history of myocardial infarction, including mother who reportedly at a young age due to a heart attack. He expresses concern today as he was researching his symptoms online and is concerned that he may have experienced a mini heart attack . Patient denies any hormone therapy, states not taking estrogen for the past 2 years. No personal history of DVT/PE/malignancy, recent surgery or prolonged immobilization, lower extremity pain redness or swelling. Related Data Previous Rx's Medication Instructions Recorded cyclobenzaprine 10 mg tablet 5 mg (1/2 x 10 mg) PO TID PRN 08/06/20 muscle spasm #20 tabs ciprofloxacin HCl 500 mg tablet 500 mg PO BID #20 tabs 11/15/20 (Cipro) phenazopyridine 200 mg tablet 200 mg PO TID PRN pain 2 days #5 11/15/20 (Pyridium) tabs tramadol 50 mg tablet 50 mg PO Q6H PRN pain #14 tabs 11/15/20 omeprazole 40 mg capsule,delayed 40 mg PO DAILY 30 days #30 caps 04/19/21 release cyclobenzaprine 10 mg tablet 10 mg PO Q8H #20 tabs 06/30/21 hydrocodone 5 mg-acetaminophen 325 1 tab PO Q6H PRN pain #20 tabs 06/30/21 mg tablet prednisone 20 mg tablet 40 mg (2 x 20 mg) PO DAILY 5 days 06/30/21 #10 tabs erythromycin 5 mg/gram (0.5 %) eye 0.5 inch ophthalmic (eye) QID #50 08/03/22 ointment grams albuterol sulfate 90 mcg/actuation 2 puff inhalation Q4-6H PRN 08/12/23 aerosol inhaler (ProAir HFA) shortness of breath or wheezing #8.5 grams amoxicillin 875 mg-potassium 1 tab PO BID #20 tabs 08/12/23 clavulanate 125 mg tablet benzonatate 200 mg capsule 200 mg PO TID PRN cough #30 caps 08/12/23 prednisone 20 mg tablet 40 mg (2 x 20 mg) PO DAILY #10 tabs 08/12/23 Allergies Allergy/AdvReac Type Severity Reaction Status Date / Time oxycodone [OXYCODONE] Allergy Severe DIFFICULTY Verified 11/15/20 19:41 BREATHING adhesive tape [ADHESIVE TAPE] Allergy Unknown RASH Verified 11/15/20 19:41 Review of Systems 2 Review of Systems: Yes all other systems are reviewed and are negative [facility] Past Medical History Attestation statement: The following information was validated with the patient. Source: old records reviewed Medical History Asthma [id number] transgender person Social History Social History Alcohol intake: current Alcohol intake frequency: holidays/special occasions only Alcohol type: hard liquor Smoked in Last 30 Days: No Use of substances other than those prescribed or required for medical reasons: No Advance Directives: No Advance Directives Information Provided: No Patient : No Current occupational status: employed Current occupation: [employer] Physical Exam 2 Vital Signs: Vital Signs: Last Vital Signs Temp 97.4 F 08/26/23 08:50 Pulse 65 08/26/23 11:55 Resp 10 L 08/26/23 11:55 BP 154/94 H 08/26/23 08:50 Pulse Ox 100 08/26/23 08:50 O2 Del Method Room Air 08/26/23 11:55 BMI result Body Mass Index 35.3 Appearance: Alert.?Oriented to person, place and time. No acute distress.?Normal affect. Eyes: Pupils equal, round and reactive to light.? ENT: Pharynx normal.?? Neck: Normal inspection.? Neck supple.?? CVS: Heart sounds normal. Normal heart rate and rhythm.? Pulses normal.?? Respiratory: No respiratory distress.? Lung sounds clear to auscultation bilaterally?? Abdomen: Soft and non-tender. Normoactive bowel sounds. Skin: Skin warm and dry.? Normal skin color.? Extremities: No lower extremity edema.? No calf ttp? Neuro: Moves all extremities spontaneously. Sensation intact bilaterally. Ambulates with normal steady gait. Course Reevaluation(s) Reevaluation #1: Delta troponin is negative, atypical presentation for cardiac pain. Advised acetaminophen/ibuprofen. Discussed worrisome signs and symptoms that would warrant re-evaluation emergency department. All questions answered. Stable for discharge home outpatient follow-up with primary care provider. Time: 13:39 Medications Administered Discontinued Medications Generic Name Dose Route Start Last Admin Trade Name Son PRN Reason Stop Dose Admin Aspirin 324 mg 08/26/23 11:15 08/26/23 11:57 Aspirin 81 Mg Tab.Chew PO 08/26/23 11:16 324 mg ONCE ONE Administration Medical Decision Making Medical Decision Making [facility] Narrative: Patient is a 33-year-old with past medical history of asthma, recent diagnosis of bronchitis 08/12/2023 with no reported persistent cough or shortness of breath over the past week who presents emergency department today for evaluation of chest pain as per HPI. At the time my examination is overall well-appearing, nontoxic, afebrile. No tachycardia. No tachypnea or hypoxia. PERC negative, unlikely pulmonary embolism. Will obtain CBC to evaluate for leukocytosis/ anemia, CMP and lipase to evaluate for abnormal electrolytes /abnormal renal function/ abnormal hepatic/biliary function, EKG and troponin to evaluate for ischemia/ACS. Chest x-ray to evaluate for consolidation/ infiltrate/ mass/ pulmonary congestion. No personal risk factors for or ACS, however given family history patient to receive ASA 324 mg orally . Differential Diagnosis Differential Diagnoses: The differential diagnosis associated with the presentation includes (As noted above) Admission/Observation Consideration of admission/observation: Escalation of care including admission/observation considered (See narrative above and course narrative for further detail.) Lab Data [facility] Lab Attestation statement: I reviewed the patient's lab results. CBC is without leukocytosis or anemia. CMP overall unremarkable. High sensitive troponin below detectable limits, pending delta troponin. Influenza/RSV/COVID-19 testing negative. 08/26/23 08:59 08/26/23 08:59 Labs: Lab Results 08/26/23 08/26/23 08/26/23 Range/Units 08:59 10:04 12:50 WBC 7.6 (4.8-10.8) X10*3/uL RBC 4.79 (4.20-5.50) X10*6/uL Hgb 13.4 (12.0-16.0) g/dl Hct 41.8 (37.0-47.0) % MCV 87.3 (80.0-98.0) fL MCH 28.0 (27.0-33.0) pg MCHC 32.1 (31.0-35.0) g/dl RDW 13.0 (11.0-16.0) % Plt Count 228 (160-400) X10*3/uL MPV 11.1 (9.4-12.3) fL Immature Gran % (Auto) 0.4 (0.0-0.4) % Neut % (Auto) 62.0 (45-73) % Lymph % (Auto) 27.6 (20-40) % [place] % (Auto) 7.6 (2-11) % Eos % (Auto) 1.7 (0-4) % Baso % (Auto) 0.7 (0-2) % Lymph # (Auto) 2.1 (1.2-4.9) X10*3/uL [place] # (Auto) 0.6 (0.1-1.2) X10*3/uL Eos # (Auto) 0.1 (0.0-0.4) X10*3/uL Baso # (Auto) 0.1 (0.0-0.2) X10*3/uL Abs Immat Gran (auto) 0.03 (0.00-0.03) X10*3/uL Absolute Neuts (auto) 4.7 (2.0-8.3) x10*3/uL Absolute Nucleated RBC 0.000 (0.0-0.012) X10*3/uL Nucleated RBC % (auto) 0.0 (0.0-0.2) /100WBC Sodium 141 (135-145) mmol/L Potassium 4.8 (3.3-5.1) mmol/L Chloride 109 H (96-108) mmol/L Carbon Dioxide 24 (22-29) mmol/L Anion Gap 13 (12-20) BUN 14 (9-16) mg/dL Creatinine 0.88 (0.5-1.4) mg/dL Estim Creat Clear Calc 120.3 Estimated GFR > 60 Random Glucose 90 (60-115) mg/dL Calcium 9.6 (8.4-10.2) mg/dL Troponin I High Sens < 2.7 < 2.7 (<3.5-17.0) ng/L Influenza Type A (PCR) NEGATIVE (Negative) Influenza Type B (PCR) NEGATIVE (Negative) RSV RNA Qual (PCR) NEGATIVE (Negative) SARS-CoV-2 RNA (RT-PCR) NEGATIVE (Negative) Independent Interpretation I performed an independent interpretation of an: EKG and Plain X-Ray (I personally interpreted chest x-ray and agree with radiologist impression.) Interpretation: Rate: 71 Rhythm: Normal sinus rhythm? [place]:? Normal Normal P waves.? Normal NIMCO.?? Normal QRS complex.?? ST T wave :??No ST elevation, no ST depression. Nonspecific T-wave abnormality The study has been interpreted contemporaneously by me. Radiology Impression Discussion of test interpretation with radiology: I have reviewed the radiologist's reading. Radiologist Impression: XR/XR chest 2V IMPRESSION: Unremarkable examination. External Record Review External record reviewed: Outpatient record Discharge Plan Discharge Clinical Impression: Chest pain Patient Disposition: Home, Self-Care Instructions: Noncardiac Chest Pain (ED) Additional Instructions: As discussed, your EKG today was reassuring, your blood work was normal. No evidence of a heart attack, we obtained 2 troponins blood markers which were normal. You can take ibuprofen 200 mg, 3 tablets (600mg) every 6-8 hours as needed for pain, in addition to Tylenol 500 mg, 2 tablets (1,000mg) every 4-6 hours as needed for pain, but not to exceed 3 doses daily (3,000mg).? Contact your primary care provider and arrange for a follow-up visit. You may return back to emergency department with any new or worsening symptoms or concerns. Prescriptions: No Action cyclobenzaprine 10 mg tablet 5 mg PO TID PRN (Reason: muscle spasm) Qty: 20 0RF ciprofloxacin HCl [Cipro] 500 mg tablet 500 mg PO BID Qty: 20 0RF phenazopyridine [Pyridium] 200 mg tablet 200 mg PO TID PRN (Reason: pain) 2 Days Qty: 5 0RF tramadol 50 mg tablet 50 mg PO Q6H PRN (Reason: pain) Qty: 14 0RF omeprazole 40 mg capsule,delayed release(DR/EC) 40 mg PO DAILY 30 Days Qty: 30 0RF cyclobenzaprine 10 mg tablet 10 mg PO Q8H Qty: 20 0RF hydrocodone-acetaminophen 5-325 mg tablet 1 tab PO Q6H PRN (Reason: pain) Qty: 20 0RF prednisone 20 mg tablet 40 mg PO DAILY 5 Days Qty: 10 0RF erythromycin 5 mg/gram (0.5 %) ointment 0.5 inch ophthalmic (eye) QID Qty: 50 0RF Rx Instructions: Apply half-inch ribbon under upper left eyelid every 6 hours when you awake benzonatate 200 mg capsule 200 mg PO TID PRN (Reason: cough) Qty: 30 0RF albuterol sulfate [ProAir HFA] 90 mcg/actuation HFA aerosol inhaler 2 puff inhalation Q4-6H PRN (Reason: shortness of breath or wheezing) Qty: 8.5 0RF amoxicillin-pot clavulanate 875-125 mg tablet 1 tab PO BID Qty: 20 0RF prednisone 20 mg tablet 40 mg PO DAILY Qty: 10 0RF Referrals: Samantha Alvarez MD [Primary Care Provider] -
[2023-08-26 11:55] VITALS: PULSE 65; RESP 10
[2023-08-26] MEDS: Aspirin 81 MG TAB.CHEW 324 MG PO (11:57)
[2023-08-26 13:30] LABS: Troponin-I High Sensitivity < 2.7 ng/L (<3.5-17.0)
== END 2023-08-26 14:11 | disposition home or self-care (01) ==
PROVIDERS: Nurse Practitioner Family; Physician Assistant Medical; Emergency Provider Emergency Medicine Emergency Medical Services; PCP Family Medicine
DX: R07.9 Chest pain, unspecified (principal); R05.9 Cough, unspecified; R06.02 Shortness of breath; Z20.822 Contact with and (suspected) exposure to COVID-19; Z20.828 Contact with and (suspected) exposure to other viral communicable diseases
CPT/HCPCS: 0241U; 36415; 71046; 80048; 84484; 85025; 93005; 99284

== ENCOUNTER → 2023-08-26 08:45 | Outpatient (BNV) | payer MEDICAID, SELFPAY | PROVIDERS: Emergency Provider Emergency Medicine Emergency Medical Services; PCP Family Medicine; Visit Provider Internal Medicine | DX: R94.31 Abnormal electrocardiogram [ECG] [EKG] (principal) | CPT/HCPCS: 93010 ==

== ENCOUNTER 2023-12-06 06:07 | Emergency (ER) | payer MEDICAID, SELFPAY ==
--- NOTE | ~2023-12-06 | XR_ITS ---
EXAMINATION: XR CHEST 2 VIEW CLINICAL INFORMATION: Chronic cough COMPARISON: 08/26/2023 TECHNIQUE: PA and lateral views of the chest obtained. FINDINGS: The lungs are clear. There are no pleural effusions. The cardiomediastinal silhouette is normal. XR/XR chest 2V IMPRESSION: No acute cardiopulmonary disease.
[2023-12-06 06:13] VITALS: BP 134/96; PULSE 63; RESP 18; TEMP 36.6; O2SAT 98; BMI 36.5
[2023-12-06 06:35] LABS: IDNOW Serial# 6674DD1D; Strep A Nucleic Acid Negative (Negative)
[2023-12-06 07:03] LABS: Influenza A PCR NEGATIVE (Negative); Influenza B PCR NEGATIVE (Negative); Resp Syncy Virus RNA Qual PCR NEGATIVE (Negative); SARS COV2 PCR INHOUSE NEGATIVE (Negative)
--- NOTE | 2023-12-06 07:12 | ED_ITS ---
HPI - URI/Sore Throat General Chief Complaint: Upper Respiratory Symptoms Stated Complaint: flu like Time Seen by Provider: 12/06/23 07:06 Source: patient, RN notes reviewed and old records reviewed Mode of arrival: ambulatory Limitations: no limitations History of Present Illness HPI Narrative: 33-year-old female with pmhx significant for asthma presents to the ED today for evaluation of cough productive of sputum, sore throat and sinus congestion x6 days. States she thought this was just an exacerbation of her allergies and has been taking Zyrtec at home without relief. She has not been taking any other ov mw-szn-fpqhtys medications. She does have a history of asthma however has not been using her inhaler at home as she has not felt short of breath. Denies fever, chills, chest pain, shortness of breath, wheezing, palpitations, abdominal pain, nausea vomiting, diarrhea, lower extremity pain/swelling. Denies known sick contacts. Denies recent travel or long car rides. Related Data Previous Rx's Medication Instructions Recorded cyclobenzaprine 10 mg tablet 5 mg (1/2 x 10 mg) PO TID PRN 08/06/20 muscle spasm #20 tabs ciprofloxacin HCl 500 mg tablet 500 mg PO BID #20 tabs 11/15/20 (Cipro) phenazopyridine 200 mg tablet 200 mg PO TID PRN pain 2 days #5 11/15/20 (Pyridium) tabs tramadol 50 mg tablet 50 mg PO Q6H PRN pain #14 tabs 11/15/20 omeprazole 40 mg capsule,delayed 40 mg PO DAILY 30 days #30 caps 04/19/21 release cyclobenzaprine 10 mg tablet 10 mg PO Q8H #20 tabs 06/30/21 hydrocodone 5 mg-acetaminophen 325 1 tab PO Q6H PRN pain #20 tabs 06/30/21 mg tablet prednisone 20 mg tablet 40 mg (2 x 20 mg) PO DAILY 5 days 06/30/21 #10 tabs erythromycin 5 mg/gram (0.5 %) eye 0.5 inch ophthalmic (eye) QID #50 08/03/22 ointment grams albuterol sulfate 90 mcg/actuation 2 puff inhalation Q4-6H PRN 08/12/23 aerosol inhaler (ProAir HFA) shortness of breath or wheezing #8.5 grams amoxicillin 875 mg-potassium 1 tab PO BID #20 tabs 08/12/23 clavulanate 125 mg tablet benzonatate 200 mg capsule 200 mg PO TID PRN cough #30 caps 08/12/23 prednisone 20 mg tablet 40 mg (2 x 20 mg) PO DAILY #10 tabs 08/12/23 benzonatate 100 mg capsule 100 mg PO BID PRN cough #20 caps 12/06/23 phenol 1.5 %-glycerin 33 % mucosal 1 spray mucous membrane Q6-8H PRN 12/06/23 spray (Chloraseptic Max Sore sore throat #118 mL Throat) prednisone 20 mg tablet 40 mg (2 x 20 mg) PO DAILY 5 days 12/06/23 #10 tabs Allergies Allergy/AdvReac Type Severity Reaction Status Date / Time oxycodone [OXYCODONE] Allergy Severe DIFFICULTY Verified 12/06/23 06:16 BREATHING adhesive tape [ADHESIVE TAPE] Allergy Unknown RASH Verified 12/06/23 06:16 Review of Systems Review of Systems: Constitutional: No fever, chills, fatigue, night sweats, weight changes ENT/Mouth: No ear pain, hearing loss, rhinorrhea, sore throat, + congestion Eyes: No eye pain, swelling, redness, vision changes, discharge Cardio: No chest pain, palpitations, TURNER, orthopnea, peripheral edema Pulm: No SOB, wheezing, dyspnea, hemoptysis, + cough, + sputum production GI: No nausea, vomiting, hematemesis, abdominal pain, diarrhea, constipation, hematochezia, melena : No irregular bleeding, dysuria, frequency, urgency, hesitancy, hematuria, flank pain, urinary flow changes, urinary incontinence or retention MSK: No back pain, neck pain, joint pain, myalgias Skin: No lesions, rashes Neuro: No weakness, numbness, paresthesias, LOC, dizziness, headache Psych: No anxiety/panic, depression, SI/HI, AH/VH All other systems reviewed and are negative. [facility] Past Medical History Attestation statement: The following information was validated with the patient. Source: old records reviewed and nursing notes reviewed Medical History Asthma Smjn-eq-gnemeq transgender person Social History Social History Alcohol intake: current Alcohol intake frequency: holidays/special occasions only Alcohol type: hard liquor Advance Directives: No Current occupational status: employed Current occupation: [employer] Physical Exam Vital Signs: Vital Signs: Last Vital Signs Temp 97.9 F 12/06/23 06:13 Pulse 63 12/06/23 06:13 Resp 18 12/06/23 06:13 BP 134/96 H 12/06/23 06:13 Pulse Ox 98 12/06/23 06:13 O2 Del Method Room Air 12/06/23 06:13 BMI result Body Mass Index 36.5 Patient hypertensive, vitals otherwise WNL. Afebrile. Const: General: cooperative, healthy appearing, comfortable and no acute distress Nutritional Appearance: overweight Orientation/consciousness: patient oriented x3 Limitations: no limitations HEENT: Other: + posterior oropharynx without erythema or edema. No tonsillar exudates or peritonsillar masses. Uvula midline. Controlling secretions and speaking in complete sentences. Head: Yes normal to inspection, Yes No palpable skull fracture present, Yes normocephalic and Yes atraumatic Ears: hearing grossly normal bilaterally, external ears normal, TM's normal bilaterally, EAC's normal, mastoids normal and no periauricular adenopathy General nose exam: Normal external nose present a nd No nasal discharge present Face and sinus: Yes normal facial exam and Yes sinuses nontender Eyes: General: appearance normal, both eyes and all related structures Conjunctivae: conjunctivae normal Sclerae: sclerae normal Pupils: Equal, round and reactive pupils present Neck: Neck: Yes normal visual inspection, Yes full ROM, Yes no lymphadenopathy and Yes no meningeal signs Chest: Chest palpation & inspection: normal inspection of the chest and normal palpation of entire chest wall Resp: Effort & Inspection: normal respiratory effort and able to speak in complete sentences Auscultation: clear to auscultation bilaterally, no crackles, no rhonchi and no wheezes Cardio: Rate: regular rate Rhythm: regular rhythm GI: Inspection: Yes normal to inspection and Yes abdominal wall ecchymosis Palpation (GI): not soft and nontender Skin: General skin exam: no rashes or lesions noted Neuro: General: patient oriented x3 and no meningeal signs Cranial nerves: Yes Equal, round and reactive pupils present Extrem: General: Yes normal to inspection Course Course Course Narrative: 0800-- Patient has tested negative for COVID, flu, RSV, strep throat. Exam is not consistent with strep throat and this antibiotics will not be prescribed. CXR without consolidation or infiltrate to suggest pneumonia. No effusion. Patient likely has a viral upper respiratory infection. Tessalon Perles and Chloraseptic throat spray sent to pharmacy. Discussed all results and disposition with patient who was agreeable. Patient has remained stable throughout ED visit today. Discussed worrisome signs and symptoms and when to return to the ED. All questions answered at this time. Patient is agreeable with disposition and stable for discharge. Medical Decision Making Medical Decision Making [facility] Narrative: 33-year-old female with pmhx significant for asthma presents to the ED today for evaluation of cough productive of sputum, sore throat and sinus congestion x6 days. Patient hypertensive, vitals otherwise WNL. She is nontoxic-appearing and in no acute distress. Bilateral EACs and TMs WNL. Sinuses nontender. P osterior oropharynx without erythema or edema. No tonsillar exudates or peritonsillar masses. Uvula midline. Controlling secretions and speaking complete sentences. Lungs CTA bilaterally, no wheezes or rhonchi. No increased effort of breathing. RRR. No rashes. No calf tenderness bilaterally. Differential diagnosis includes viral syndrome, strep throat, sinusitis, pneumonia, bronchitis. 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 Plan for viral serology, chest x-ray and re-evaluation. Differential Diagnosis Differential Diagnoses: The differential diagnosis associated with the presentation includes As above Admission/Observation Not indicated Lab Data [facility] Lab Attestation statement: I reviewed the patient's lab results. As above Labs: Lab Results 12/06/23 Range/Units 06:21 Influenza Type A (PCR) NEGATIVE (Negative) Influenza Type B (PCR) NEGATIVE (Negative) RSV RNA Qual (PCR) NEGATIVE (Negative) SARS-CoV-2 RNA (RT-PCR) NEGATIVE (Negative) S. pyogenes GrpA LEO Negative (Negative) Independent Interpretation I performed an independent interpretation of an: Plain X-Ray Interpretation: I personally reviewed chest x-ray and agree with radiologist's interpretation. Radiology Impression Discussion of test interpretation with radiology: I have reviewed the radiologist's reading. Radiologist Impression: EXAMINATION: XR CHEST 2 VIEW CLINICAL INFORMATION: Chronic cough COMPARISON: 08/26/2023 TECHNIQUE: PA and lateral views of the chest obtained. FINDINGS: The lungs are clear. There are no pleural effusions. The cardiomediastinal silhouette is normal. XR/XR chest 2V IMPRESSION: No acute cardiopulmonary disease. External Record Review External record reviewed: Inpatient record, Office record, Outpatient record, Prior outpatient labs, Prior outpatient radiology, Primary care record and Outside ED record Prescription Management I considered prescription management with: Pain Medication and Other (Tessalon Perles, Chloraseptic spray) Chronic Conditions Patient?s care impacted by: Other (asthma) Social Determinants Patient?s care significantly limited by Social Determinants of Health including: Other Social Determinant of Health Discharge Plan Discharge Clinical Impression: Upper respiratory infection, viral Patient Disposition: Home, Self-Care Instructions: Upper Respiratory Infection (ED), Viral Syndrome (ED) Additional Instructions: You tested negative for COVID, flu, RSV, strep throat. Your chest x-ray is normal. You likely have a viral upper respiratory infection that does not require antibiotic treatment. Tessalon Perles have been sent to your pharmacy for you to take for cough. Chloraseptic sprays sent to your pharmacy for you to take with your throat. This is also something that you can purchase [id number]. Prednisone as a steroid that has been sent to your pharmacy. Take this as directed over the next 5 days. Alter ibuprofen and Tylenol for fevers and body aches. Follow-up with your PCP. If symptoms persist or worsen please return to the emergency department. The case of an emergency call 911. Prescriptions: New benzonatate 100 mg capsule 100 mg PO BID PRN (Reason: cough) Qty: 20 0RF Chloraseptic Max Sore Throat 1.5-33 % spray,non-aerosol 1 spray mucous membrane Q6-8H PRN (Reason: sore throat) Qty: 118 0RF Rx Instructions: leave on area for 15 seconds then spit out prednisone 20 mg tablet 40 mg PO DAILY 5 Days Qty: 10 0RF No Action cyclobenzaprine 10 mg tablet 5 mg PO TID PRN (Reason: muscle spasm) Qty: 20 0RF ciprofloxacin HCl [Cipro] 500 mg tablet 500 mg PO BID Qty: 20 0RF phenazopyridine [Pyridium] 200 mg tablet 200 mg PO TID PRN (Reason: pain) 2 Days Qty: 5 0RF tramadol 50 mg tablet 50 mg PO Q6H PRN (Reason: pain) Qty: 14 0RF omeprazole 40 mg capsule,delayed release(DR/EC) 40 mg PO DAILY 30 Days Qty: 30 0RF cyclobenzaprine 10 mg tablet 10 mg PO Q8H Qty: 20 0RF hydrocodone-acetaminophen 5-325 mg tablet 1 tab PO Q6H PRN (Reason: pain) Qty: 20 0RF prednisone 20 mg tablet 40 mg PO DAILY 5 Days Qty: 10 0RF erythromycin 5 mg/gram (0.5 %) ointment 0.5 inch ophthalmic (eye) QID Qty: 50 0RF Rx Instructions: Apply half-inch ribbon under upper left eyelid every 6 hours when you awake benzonatate 200 mg capsule 200 mg PO TID PRN (Reason: cough) Qty: 30 0RF albuterol sulfate [ProAir HFA] 90 mcg/actuation HFA aerosol inhaler 2 puff inhalation Q4-6H PRN (Reason: shortness of breath or wheezing) Qty: 8.5 0RF amoxicillin-pot clavulanate 875-125 mg tablet 1 tab PO BID Qty: 20 0RF prednisone 20 mg tablet 40 mg PO DAILY Qty: 10 0RF Stand Alone Forms: Work/School Release
--- NOTE | 2023-12-06 07:39 | PC.NURSE ---
Pt reporting 5-6 days of upper resp symptoms, noted sore throat being the worst symptoms with associated cough, denies being around sick contacts at this time, awaiting for results at this time and dispo. Call galloway within reach
[2023-12-06 08:35] VITALS: BP 151/85; PULSE 59; RESP 18; TEMP 37.2; O2SAT 99
== END 2023-12-06 08:38 | disposition home or self-care (01) ==
PROVIDERS: Emergency Provider Emergency Medicine; PCP Family Medicine
DX: J06.9 Acute upper respiratory infection, unspecified (principal); J45.909 Unspecified asthma, uncomplicated; Z11.52 Encounter for screening for COVID-19; Z20.828 Contact with and (suspected) exposure to other viral communicable diseases
CPT/HCPCS: 0241U; 71046; 87651; 99283; 99284

== ENCOUNTER 2024-07-14 19:20 | Emergency (ER) | payer MEDICAID, SELFPAY ==
--- NOTE | ~2024-07-14 | XR_ITS ---
EXAMINATION: XR ANKLE, RIGHT CLINICAL INFORMATION: Injury, pain COMPARISON: None available. TECHNIQUE: AP, lateral, and mortise views of the right ankle. FINDINGS: No fracture. Alignment is anatomic. No erosions. Joint spaces are maintained. Soft tissues are normal. XR/XR ankle RT 2V IMPRESSION: Unremarkable right ankle. Electronically signed by: Tomy Mcfarlane MD 07/14/2024 08:31 PM EDT RP
[2024-07-14 19:52] VITALS: BP 157/102; PULSE 83; RESP 16; TEMP 36.9; O2SAT 96; BMI 35.4
--- OUTSIDE RECORDS SUMMARY | 2024-07-14 20:06 | XMS_ITS | Continuity of Care Document ---
Author Organization [facility] Address [address] [place] [phone]- Care Team Providers Care Biofuels Product Manager Name Role Phone Samantha Alvarez MD Primary Care Physician [phone] Encounter [facility] [place] Date(s): 05/30/23 - 06/29/23 [facility] [address] [place] [phone]- Attending Physician: Mikael Griffiths Admitting Physician: Mikael Griffiths Referring Physician: Admtr, Ar8 Allergies, Adverse Reactions, Alerts Substance Reaction Severity Status Adhesive Bandage Skin rash Active Latex rash Active oxyCODONE throat closing Active Medications acetaminophen-HYDROcodone 325 mg-5 mg oral tablet See Instructions, PRN as needed for pain, 1-2 tablet By Mouth Every 4 hours, 0 Refills, Maintenance, 11/15/22 9:41:00 EST, Tablet, Partial fill upon patient request if the prescription is for a schedule II opioid drug. Start Date: 11/15/22 Status: Ordered albuterol 0.083% inhalation solution 3 mL = 2.5 mg, Inhalation, Every 6 hours, PRN for wheezing, # 25 each, 0 Refills, Maintenance, 03/03/20 12:56:00 EDT, Solution Start Date: 03/03/20 Status: Ordered estradiol 2 mg oral tablet 3 tablet = 6 mg, By Mouth, Daily, 0 Refills, Maintenance, 06/04/22 12:00:00 EDT, Tablet, Partial fill upon patient request if the prescription is for a schedule II opioid drug. Start Date: 06/04/22 Status: Ordered naproxen 500 mg oral tablet 1 tablet = 500 mg, By Mouth, 2 times a day, 0 Refills, Maintenance, 11/15/22 9:42:00 EST, Tablet, Partial fill upon patient request if the prescription is for a schedule II opioid drug. Start Date: 11/15/22 Status: Ordered Trazodone = 50 mg, By Mouth, Daily at bedtime, 0 Refills, Maintenance, 11/11/22 16:37:00 EST, Partial fill upon patient request if the prescription is for a schedule II opioid drug. 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
--- OUTSIDE RECORDS SUMMARY | 2024-07-14 20:06 | XMS_ITS | Continuity of Care Document ---
Author Organization [facility] Address [address] [place] [phone]- Care Team Providers Care Nursing Surgical Services Director Name Role Phone Samantha Alvarez MD Primary Care Physician Encounter [facility] [place] Date(s): 07/06/22 - 07/07/[address] [address]- Encounter Diagnosis Hiatal hernia with GERD(Final) - 07/07/22 Discharge Disposition: A-D/C Home Attending Physician: More Charles MD Admitting Physician: More Charles MD Referring Physician: Not on Staff, Referring MD Allergies, Adverse Reactions, Alerts Substance Reaction Severity Status Adhesive Bandage Skin rash Active oxyCODONE Active Medications albuterol 0.083% inhalation solution 3 mL = [...] opioid drug. Start Date: 06/04/22 Status: Ordered meclizine 25 mg oral tablet 1 tablet = 25 mg, By Mouth, 3 times a day, PRN for dizziness, # 30 tablet, 0 Refills, Maintenance, 03/03/20 12:56:00 EDT, Tablet Start Date: 03/03/20 Status: Ordered omeprazole 40 mg oral enteric coated capsule 1 capsule = 40 mg, By Mouth, Daily, before a meal, # 30 capsule, 0 Refills, Maintenance, 07/07/22 10:46:00 EDT, EC Capsule, [id number], Partial fill upon patient request if the prescription is for a schedule II opioid drug., 175, cm, 06/04/22 11:... Start Date: 07/07/22 Status: Ordered Protonix 40 mg oral delayed release tablet = 40 mg, By Mouth, 2 times a day, # 28 capsule, 0 Refills, Maintenance, 06/04/22 12:01:00 EDT, EC Tablet, 175, cm, 06/04/22 11:32:00 EDT, Height, 107, kg, 06/02/22 14:44:00 EDT, Dry Weight Start Date: 06/04/22 Stop Date: 06/18/22 Status: Ordered Trulicity Pen 0.75 mg/0.5 mL subcutaneous solution 0.5 mL = 0.75 mg, Subcutaneous Injection, Every week, rotate injection sites, # 2 mL, 0 Refills, Maintenance, 06/02/22 14:54:00 EDT, Solution, Partial fill upon patient request if the prescription isfor a schedule II opioid drug. 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 Vital Signs Most recent to oldest [Reference Range]: 1 2 3 Oxygen Saturation [94-100 %] 100 % (07/07/22 7:03 AM) 100 % (07/07/22 4:39 AM) 100 % (07/07/22 1:48 AM) Pulse Rate [55-90 bpm] 95 bpm *H* (07/07/22 7:03 AM) 86 bpm (07/07/22 4:39 AM) 81 bpm (07/07/22 1:48 AM) Blood Pressure [90-138/55-84 mm Hg] 136/100mm Hg (07/07/22 7:03 AM) 138/106mm Hg (07/07/22 4:39 AM) 138/77mm Hg (07/07/22 1:48 AM) Respiratory Rate [16-30 br/min] 18 br/min (07/06/22 3:04 PM) 18 br/min (07/06/22 12:44 PM) Temperature [96.8-100.4 DegF] 98 DegF (07/07/22 7:03 AM) 98 DegF (07/07/22 4:39 AM) 98.0 DegF (07/07/22 1:48 AM) Mode of Delivery (Oxygen) Room air (07/07/22 7:03 AM) Room air (07/07/22 4:39 AM) Room air (07/06/22 9:21 PM) Blood pressure sites Arm, right (07/07/22 7:03 AM) Arm, right (07/07/22 4:39 AM) Arm, right (07/07/22 1:48 AM) Temperature Route Oral (07/07/22 7:03 AM) Oral (07/07/22 4:39 AM) Oral (07/07/22 1:48 AM) Social History Social History Type Response Smoking Status Never smoker entered on: 11/07/14 Sex Patient Care team information Personnel Name: Samantha Alvarez MD Address: Address: [address] [place], [place] [address]
--- OUTSIDE RECORDS SUMMARY | 2024-07-14 20:07 | XMS_ITS | Continuity of Care Document ---
Author Organization [facility] ter Address [address] [place] [address]- Care Team Providers Care Die Sinker Apprentice Name Role Phone Samantha Alvarez MD Primary Care Physician [place] [facility] [place] - 06/04/[address] [address]- Encounter Diagnosis Abdominal pain(Final) - 06/02/22 Discharge Disposition: A-D/C Home Attending Physician: Vianney Nguyen MD Admitting Physician: Vianney Nguyen MD Referring Physician: Not on Staff, Referring MD Allergies, Adverse Reactions, Alerts Substance Reaction Severity Status Adhesive Bandage Skin rash Active oxyCODONE Active Medications albuterol 0.083% inhalation solution 3 mL = 2.5 mg, Inhalation, Every 6 hours, PRN for wheezing, # 25 each, 0 Refills, Maintenance, 03/03/20 12:56:00 EDT, Solution Start Date: 03/03/20 Status: Ordered Dilaudid 2 mg oral tablet 2 mg, Tablet, By Mouth, Every 4 hours, PRN for Pain , Severe, Routine, 06/02/22 15:48:00 EDT Start Date: 06/02/22 Stop Date: 06/05/22 Status: Discontinued Dilaudid 2 mg oral tablet 1 tablet = 2 mg, By Mouth, Every 6 hours, PRN Pain , Severe, for 3 days, # 12 tablet, 0 Refills, Acute 06/07/22 14:20:00 EDT, 06/04/22 14:20:00 EDT, Tablet, [facility], Partial fill upon patient request if the prescription is for a sched... Start Date: 06/04/22 Stop Date: 06/07/22 Status: Ordered estradiol 2 mg oral tablet 3 tablet = 6 mg, By Mouth, Daily, 0 Refills, Maintenance, 06/04/22 12:00:00 EDT, Tablet, Partial fill upon patient request if the prescription is for a schedule II opioid drug. Start Date: 06/04/22 Status: Ordered hydrOXYzine hydrochloride 50 mg oral tablet 1 tablet = 50 mg, By Mouth, Every 6 hours, PRN Anxiety, for 30 days, # 120 tablet, 0 Refills, Acute07/04/22 12:02:00 EDT, 06/04/22 12:02:00 EDT, Tablet, [facility], Partial fill upon patient request if the prescription is for a schedule... Start Date: 06/04/22 Stop Date: 07/04/22 Status: Ordered meclizine 25 mg oral tablet 1 tablet = 25 mg, By Mouth, 3 times a day, PRN for dizziness, # 30 tablet, 0 Refills, Maintenance, 03/03/20 12:56:00 EDT, Tablet Start Date: 03/03/20 Status: Ordered ondansetron 4 mg oral tablet 1 tablet = 4 mg, By Mouth, Every 8 hours, for 5 days, # 15 tablet, 0 Refills, Acute 06/09/22 12:02:00 EDT, 06/04/22 12:02:00 EDT, Tablet, [facility], Partial fill upon patient request if the prescription is for a schedule II opioid drug.... 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 LUNGS AND PLEURA: Previously seen left basilar consolidation has resolved. The lungs are clear. Normal pulmonary vascularity. No pleural effusion. No pneumothorax. HEART, MEDIASTINUM AND LO: Heart is normal in size. Normal upper mediastinal and hilar contour. BONES AND SOFT TISSUES: No acute abnormality. IMPRESSION: No acute abnormality. Resolution of previously seen left basilar pneumonia. WSN: [id number] Ordering Physician: Teresa Londono Dictated By: Brad Henrandez MD Dictated Date/Time: 06/02/22 0:07 am Reviewed By: Brad Hernandez MD Signed By: Brad Hernandez MD Signed Date/Time: 06/02/22 0:07 am Transcribed By: LINDSEY Transcribed Date/Time: 06/02/22 0:06 am Vital Signs Most recent to oldest [Reference Range]: 1 2 3 Height 175 cm (06/04/22 11:32 AM) 175 cm (06/04/22 7:38 AM) 175 cm (06/04/22 4:46 AM) Weight 107 kg (06/02/22 2:44 PM) Oxygen Saturation [94-100 %] 95 % (06/04/22 11:32 AM) 97 % (06/04/22 7:38 AM) 98 % (06/04/22 4:46 AM) Pulse Rate [55-90 bpm] 67 bpm (06/04/22 11:32 AM) 57 bpm (06/04/22 7:38 AM) 86 bpm (06/04/22 4:46 AM) Body Mass Index [18.5-24.99] 34.94 *>HHI* (06/02/22 2:44 PM) Blood Pressure [90-138/55-84 mm Hg] 122/88mm Hg (06/04/22 11:32 AM) 114/72mm Hg (06/04/22 7:38 AM) 107/68mm Hg (06/04/22 4:46 AM) Respiratory Rate [16-30 br/min] 17 br/min (06/04/22 11:32 AM) 15 br/min *L* (06/04/22 10:18 AM) 16 br/min (06/04/22 9:18 AM) Temperature [96.8-100.4 DegF] 98.3 DegF (06/04/22 11:32 AM) 98.2 DegF (06/04/22 7:38 AM) 98.2 DegF (06/04/22 4:46 AM) Liters per Minute 0 L/min (06/02/22 11:43 AM) 0 L/min (06/02/22 8:25 AM) Mode of Delivery (Oxygen) Room air (06/04/22 11:32 AM) Room air (06/04/22 7:38 AM) Room air (06/04/22 4:46 AM) Blood pressure sites Arm, right (06/04/22 11:32 AM) Arm, right (06/04/22 7:38 AM) Arm, left (06/04/22 4:46 AM) Temperature Route Oral (06/04/22 11:32 AM) Oral (06/04/22 7:38 AM) Oral (06/04/22 4:46 AM) Dry Weight 107 kg (06/02/22 2:44 PM) Weight Obtained Via Patient/family state d (06/02/22 2:44 PM) Dry Weight Obtained Via Patient/family s tated (06/02/22 2:44 PM) Social History Social History Type Response Smoking Status Never smoker entered on: 11/07/14 Sex Note * [employer] , CIS S: TRANSCRIBE Brad Hernandez MD: VERIFY Event Display: Result: Authored Date: [id number] Chest 2 Views Frontal and Lat Hx of Present Illness: hernai h; Reason: Shortness of Breath; Clinical Question(s): Pneumonia COMPARISON: 04/21/2015 x-ray FINDINGS: LINES AND TUBES: None. LUNGS AND PLEURA: Previously seen left basilar consolidation has resolved. The lungs are clear. Normal pulmonary vascularity. No pleural effusion. No pneumothorax. HEART, MEDIASTINUM AND LO: Heart is normal in size. Normal upper mediastinal and hilar contour. BONES AND SOFT TISSUES: No acute abnormality. IMPRESSION: No acute abnormality. Resolution of previously seen left basilar pneumonia. WSN: [id number] Ordering Physician: Teresa Londono Dictated By: Brad Hernandez MD Dictated Date/Time: 06/02/22 0:07 am Reviewed By: Brad Hernandez MD Signed By: Brad Hernandez MD Signed Date/Time: 06/02/22 0:07 am Transcribed By: LINDSEY Transcribed Date/Time: 06/02/22 0:06 am Care Team Personnel Name: Samantha Alvarez MD Address: [address] [place] [address] [address]
--- OUTSIDE RECORDS SUMMARY | 2024-07-14 20:07 | XMS_ITS | Continuity of Care Document ---
Author Organization [facility] Address [address] [place] [address]- Care Team Providers Care Folder Gluer Operator Name Role Phone Belia Urrutia NP Primary Care Physician [phone] Encounter [facility] [place] Date(s): 02/07/20 - 03/08/20 [facility] [address] [place] [address]- [facility] Attending Physician: Mikael Griffiths Admitting Physician: AdmtrMikael Referring Physician: Admtr, Ar8 Allergies, Adverse Reactions, Alerts Substance Reaction Severity Status Adhesive Bandage Skin rash Active oxyCODONE Active Medications albuterol 0.083% inhalation solution 3 mL = 2.5 mg, Inhalation, Every 6 hours, PRN for wheezing, # 25 each, 0 Refills, Maintenance, 03/03/20 12:56:00 EDT, Solution Start Date: 03/03/20 Status: Ordered estradiol 2 mg oral tablet 2.5 tablet = 5 mg, By Mouth, Daily, dx: 302.5. Rx resent from 07/04/16, # 225 tablet, 4 Refills, Maintenance, 07/13/16 14:08:27 Start Date: 07/13/16 Stop Date: 10/06/17 Status: Ordered meclizine 25 mg oral tablet 1 tablet = 25 mg, By Mouth, 3 times a day, PRN for dizziness, # 30 tablet, 0 Refills, Maintenance, 03/03/20 12:56:00 EDT, Tablet Start Date: 03/03/20 Status: Ordered Tums 500 mg oral tablet, chewable 500 mg, 1, tablet, Chew, 3 times a day, PRN, # 12 tablet, Refills 0, Maintenance, as needed for dyspepsia, 03/03/20 12:56:00 EDT Start Date: 03/03/20 Status: Ordered Problem List Condition Effective Dates Status Health Status Inform ant Gender Dysphoria(Confirmed) Active Dukh-op-zspowi transsexuality(Confirmed) Active Social History Social History Type Response Smoking Status Never smoker entered on: 11/07/14 Sex
--- OUTSIDE RECORDS SUMMARY | 2024-07-14 20:07 | XMS_ITS | Continuity of Care Document ---
Author Organization [facility] Address [address] [place] [address]- Care Team Providers Care Product Development Technician Name Role Phone Samantha Alvarez MD Primary Care Physician Encounter [facility] [place](s): 11/07/22 - 12/07/22 [facility] [address] [place] [address]- Attending Physician: Mikael Griffiths Admitting Physician: Mikael Griffiths Referring Physician: [email or web address] Allergies, Adverse Reactions, Alerts Substance Reaction Severity [...] ealth Status Informant Gender Dysphoria Confirmed Active Mykf-ic-enerzr transsexuality Confirmed Active Obese class I Confirmed Active Social History Social History Type Response Smoking Status Never smoker entered on: 11/07/14 Sex Patient Care team information Care Team Personnel Name: Samantha Alvarez MD Position: Reference Physician Member Role: PCP Address: Address: [address] [place] [address] [address] [place] [address]- Care Team Related Persons Name: MILLI WOLFE Address: home [address] [place] [address] Name: JEYSON CRISTINA Address: home [address] [place] [address] Name: HIRO PRASAD Address: home [address] [place] [address]
--- OUTSIDE RECORDS SUMMARY | 2024-07-14 20:07 | XMS_ITS | Continuity of Care Document ---
Author Organization [facility] Address [address] [place] [address]- Care Team Providers Care Shanker Out Name Role Phone Samantha Alvarez MD Primary Care Physician Encounter [facility] [place] Date(s): 06/13/22 - 07/13/22 [facility] [address] [place] [address]- [place] Allergies, Adverse Reactions, Alerts Substance Reaction Severity [...] 07/07/22 10:46:00 EDT, EC Capsule, [id number], Partial fill upon patient request if the [...] ealth Status Informant Gender Dysphoria Confirmed Active Znnb-ah-wunqvo transsexuality Confirmed Active Obese class I Confirmed Active Social History Social History Type Response Smoking Status Never smoker entered on: 11/07/14 Sex Patient Care team information Personnel Name: Samantha Alvarez MD Address: Address: [address]
--- OUTSIDE RECORDS SUMMARY | 2024-07-14 20:07 | XMS_ITS | Continuity of Care Document ---
Author Organization [facility] Address [address] [place] [address]- Care Team Providers Care Core Java Software Engineer Name Role Phone Samantha Alvarez MD Primary Care Physician Encounter [facility] [place] Date(s): 12/10/21 - 01/09/22 [facility] [address] [address] Attending Physician: Mikael Griffiths Admitting Physician: AdmtrMikael [...] Health Status Inform ant Gender Dysphoria(Confirmed) Active Zuqg-gu-wqwevi transsexuality(Confirmed) Active Social History Social History Type Response Smoking Status Never smoker entered on: 11/07/14 Sex
--- OUTSIDE RECORDS SUMMARY | 2024-07-14 20:07 | XMS_ITS | Continuity of Care Document ---
Author Organization [facility] Address [address] [place] [address]- Care Team Providers Care Laboratory Administrative Director Name Role Phone Renan DIAZ, Belia Maurice Primary Care Physician [place] [facility] [place] - 11/15/19 [facility] [address] [address]- [facility] Attending Physician: Mikael Griffiths Admitting Physician: Mikael Griffiths Referring Physician: AdmtrMikael Allergies, Adverse Reactions, Alerts Substance Reaction Severity Status oxyCODONE Active Medications Bactrim DS 800 mg-160 mg oral tablet 1 tablet, By Mouth, 2 times a day, # 14 tablet, 0 Refills, Maintenance, 10/28/17 2:55:51 Start Date: 10/28/17 Stop Date: 11/04/17 Status: Ordered Cipro 500 mg oral tablet 1 tablet = 500 mg, By Mouth, Every 12 hours, # 20 tablet, 0 Refills, Maintenance, 07/13/16 13:13:23, Tablet Start Date: 07/13/16 Stop Date: 07/23/16 Status: Ordered estradiol 2 mg oral tablet 2.5 tablet = 5 mg, By Mouth, Daily, dx: 302.5, # 225 tablet, 4 Refills, Maintenance, 07/04/16 14:03:36 Start Date: 07/04/16 Stop Date: 09/27/17 Status: Ordered estradiol 2 mg oral tablet 2.5 tablet = 5 mg, By Mouth, Daily, dx: 302.5. Rx resent from 07/04/16, # 225 tablet, 4 Refills, Maintenance, 07/13/16 14:08:27 Start Date: 07/13/16 Stop Date: 10/06/17 Status: Ordered ibuprofen 600 mg oral tablet 600 mg, 1, tablet, By Mouth, 4 times a day, PRN, # 30 tablet, Refills 0, Tot. Refills 0, Maintenance, as needed for pain, 12/29/17 4:24:06 EDT, Print Requisition Start Date: 12/29/17 Status: Ordered spironolactone 100 mg oral tablet 100 mg, 1, tablet, By Mouth, 2 times a day, DOSE INCREASE, # 60 tablet, Refills 5, Tot. Refills 5, Maintenance, 07/04/16 14:03:39, Route to Pharmacy Electronically, [id number], [facility] Start Date: 07/04/16 Stop Date: 12/31/16 Status: Ordered Problem List Condition Effective Dates Status Health Status Inform ant Gender Dysphoria(Confirmed) Active Ewmv-am-bkcwiz transsexuality(Confirmed) Active Social History Social History Type Response Smoking Status Never smoker entered on: 11/07/14 Sex
--- OUTSIDE RECORDS SUMMARY | 2024-07-14 20:07 | XMS_ITS | Continuity of Care Document ---
Author Organization [facility] Address [address] [place] [address]- Care Team Providers Care Glass Toughening Operator Name Role Phone Samantha Alvarez MD Primary Care Physician [phone] [place] [facility] [place] 08/01/22 [facility] [address] [place] [address]- [place] Allergies, Adverse Reactions, Alerts Substance Reaction [...] 07/07/22 10:46:00 EDT, EC Capsule, [id number], Partial fill upon patient request if the [...] ealth Status Informant Gender Dysphoria Confirmed Active Dsfk-fm-odawbx transsexuality Confirmed Active Obese class I Confirmed Active Social History Social History Type Response Smoking Status Never smoker entered on: 11/07/14 Sex Patient Care team information Care Team Personnel Name: Samantha Alvarez MD Position: Reference Physician Member Role: PCP Address: Address: [address] [place] [address] [address] [place] [address]- Care Team Related Persons Name: MILLI WOLFE Address: [address] [place] [address] Name: JEYSON CRISTINA Address: [address] [place] [address] Name: HIRO PRASAD Address: home [address] [place] [address]
--- OUTSIDE RECORDS SUMMARY | 2024-07-14 20:07 | XMS_ITS | Continuity of Care Document ---
Author Organization [facility] ter Address [address] [place] [address]- Care Team Providers Care Medical Billing Specialist Name Role Phone Samantha Alvarez MD Primary Care Physician [phone] Encounter [facility] Date(s): 10/04/22 - 10/04/[address] [address] Discharge Disposition: A-D/C Home Attending Physician: Srikanth Gil MD Admitting Physician: Srikanth Gil MD Referring Physician: Srikanth Gil MD Allergies, Adverse Reactions, Alerts Substance Reaction Severity Status Adhesive Bandage Skin rash Active Latex rash Active oxyCODONE throat closing Active Medications albuterol 0.083% inhalation solution 3 [...] opioid drug. Start Date: 06/04/22 Status: Ordered HYDROmorphone 2 mg oral tablet 2 mg, Tablet, By Mouth, Once, Routine, 10/04/22 16:00:00 EST, Stop date 10/04/22 16:00:00 EST Start Date: 10/04/22 Stop Date: 10/04/22 Status: Completed meclizine 25 mg oral tablet 1 tablet [...] 07/07/22 10:46:00 EDT, EC Capsule, [id number], Partial fill upon patient request if the prescription is for a schedule II opioid drug., 175, cm, 06/04/22 11:... 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 Procedures Procedure Date Related Diagnosis Body Site Status Septoplasty or submucous res ection, with or without cartilage scoring, contouring or replacement with graft Comple rod Submucous resection inferior turbinate, partial or complete, any method Completed Vital Signs Most recent to oldest [Reference Range]: 1 2 3 Height 175 cm (10/04/22 12:19 PM) 175 cm (09/29/22 10:47 AM) Weight 102.1 kg (10/04/22 12:19 PM) 102.1 kg (09/29/22 10:47 AM) Oxygen Saturation [94-100 %] 96 % (10/04/22 5:30 PM) 97 % (10/04/22 5:00 PM) 96 % (10/04/22 4:15 PM) Pulse Rate [55-90 bpm] 83 bpm (10/04/22 12:19 PM) Body Mass Index [18.5-24.99 kg/m2] 33.34 kg/m2 *>HHI* (10/04/22 12:19 PM) 33.34 kg/m2 *>HHI* (09/29/22 10:47 AM) Blood Pressure [90-138/55-84 mm Hg] 158/82mm Hg *H* (10/04/22 5:00 PM) 148/87mm Hg *H* (10/04/22 4:15 PM) 168/105mm Hg *H* (10/04/22 3:15 PM) Respiratory Rate [16-30 br/min] 15 br/min *L* (10/04/22 4:15 PM) 14 br/min *L* (10/04/22 3:15 PM) 20 br/min (10/04/22 3:10 PM) Temperature [96.8-100.4 DegF] 97.4 DegF (10/04/22 3:15 PM) 98.9 DegF (10/04/22 1:45 PM) 97.2 DegF (10/04/22 12:19 PM) Liters per Minute 4 L/min (10/04/22 2:00 PM) 6 L/min (10/04/22 1:45 PM) Mode of Delivery (Oxygen) Room air (10/04/22 5:00 PM) Room air (10/04/22 4:15 PM) Room air (10/04/22 3:15 PM) Temperature Route Temporal (10/04/22 3:15 PM) Temporal (10/04/22 1:45 PM) Temporal (10/04/22 12:19 PM) Dry Weight 102 kg (10/04/22 12:19 PM) 102.1 kg (09/29/22 10:47 AM) Weight Obtained Via Patient/family state d (09/29/22 10:47 AM) Dry Weight Obtained Via Standing scale (10/04/22 12:19 PM) Patient/family stated (09/29/22 10:47 AM) Social History Social History Type Response Smoking Status Never smoker entered on: 11/07/14 Sex Note * Adrienne Pedersen RN: PERFORM Event Display: Discharge/Transfer Note Hospital Authored Date: [id number] Nursing Discharge Note Entered On: 10/04/2022 17:39 EST Performed On: 10/04/2022 17:38 EST by Adrienne Pedersen RN Nursing Discharge Note 2 Discharge Time : 10/04/2022 17:25 EST Discharge Level of Care at Discharge : Home/Shelter/Foster Care Patient Left Unit Via : Wheelchair Patient Accompanied Off Unit with : Significant other DC Instructions Provided & Signed by Pt : Yes Patient Understands D/C Instructions : Yes Patient Instructions Discharge Signed : Yes Did Pt have Specialty Bed or Wound Vac : No Adrienne Pedersen RN - 10/04/2022 17:38 EST * Adrienne Pedersen RN: PERFORM Event Display: Patient Education/Instruction Authored Date: [id number] Inpatient Adult Discharge Instructions [address] [address] Name: STEVEN JEFFRIES : 1990 Visit: 10/04/2022 11:01:00 Current Date: 10/04/2022 14:45 Account: [id number] Inpatient Adult Discharge Instructions We would like to thank you for allowing us to assist you with your healthcare needs. The following includes patient education materials and information regarding your injury/illness. Our entire staffstrives to provide an excellent experience for our patients and their families. PLEASE ENSURE YOU FOLLOW-UP PER THE INSTRUCTIONS BELOW! ?? YOUR OPINION IS IMPORTANT TO US! Please complete the survey you may receive by mail or email. Your feedback will be used to make improvements to the healthcare experiences of our patients and their families. Surveys are administered by [employer] ?? If further treatment with your primary care physician or another doctor is recommended, it is important for you to keep the appointment. Call your primary care physician or return to the Emergency Department immediately if your condition worsens, fails to improve, or new symptoms develop. If you need to find a doctor, you can call [facility] for a referral at [phone] or toll free at [phone] ([phone]) or log in to [email or web address].. ?? You can view and manage your care through the patient portal or by using a health care popeye of your choosing. [employer] is a website that allows you to securely view your medical information including your hospital discharge summary, office visit summaries, medications and follow-up visits. You can also request appointments, renew medications, and request access to your medical information using a health care popeye of your choosing, or just ask a question. You can enroll at [email or web address] or register during your next office visit. You have been discharged from [facility], Patient Care Unit: [facility]. If you have any questions regarding these instructions after you leave, please call us and we will be happy to assist you. [facility] Your Care Team Attending Physician Jeffery ALEGRE, Srikanth Terrazas Consulting Providers Jeffery ALEGRE, Srikanth Terrazas Discharging Providers Jeffery ALEGRE, Srikanth Terrazas Reason for Admission DEVIATED SEPTUMDS CS Your Diagnosis Nasal turbinate hypertrophy Nasal septal deviation Tests Performed Below is a partial list of the tests performed during your hospitalization. You may have had other tests and procedures not included in this list. Please discuss all test results with your provider. Primary Care Provider Samantha Alvarez MD Advance Directive Health Care Proxy on File No No qualifying data available. Discharge Vitals Temperature: 98.9 DegF Height: 175 cm Pulse Rate: 83 bpm Weight: 102.1 kg Respiratory Rate:??14 br/min??Low Body Mass Index:??33.34 kg/m2??Critical Systolic Blood Pressure:??174 mm Hg??High Body surface area: 2.23 Diastolic Blood Pressure:??102 mm Hg??High ?? Oxygen Saturation:??93 %??Low ?? Studies Pending All tests and labs ordered during this hospital stay have been completed unless listed below. Please discuss all pending results with your provider listed above in these instructions. ?? Pathology Tissue Request () What to do next Instructions From Your Doctor Discharge Orders Instructions from your Care Team Saline 4 times daily ?? Tylenol and ibuprofen as needed ?? Follow-up appointment in three days ?? Change drip pad as needed ?? Call MD for any periorbital ecchymosis or visual changes Scheduled Follow-Up Appointments Monday 8:00 AM EST ?? With: Jesus OLIVAREZ, Juan Pfeiffer Where: [facility] [address] [place] [id number]- You Need to Schedule the Following Appointments Follow Up with??Srikanth Gil When?? Where: [address] [facility] [address] [facility], [place] [address]- Business (1) Follow Up with??Samantha Alvarez MD When??In 0 days Where: [address] [place] [address]- Business (1) Discharge Medications STEVEN JEFFRIES :1990 Visit Date:10/04/2022 Medications: Please continue your medications until treatment is completed or stopped by your provider. Medications not listed below should be discontinued. Discuss any questions related to medications with your provider. What How Much When Instructions Next Dose Unchanged Albuterol (albuterol 0.083% inhalation solution) 3 Milliliter Inhalation Every 6 hours as needed for for wheezing Unchanged Calcium Carbonate (Tums 500 mg oral tablet, chewable) 1 tab(s) Chew 3 times a day as needed for as needed for dyspepsia Unchanged dulaglutide (Trulicity Pen 0.75 mg/ 0.5 mL subcutaneous solution) 0.5 Milliliter Subcutaneous Injection Every week rotate injection sites ?? Unchanged Estradiol (estradiol 2 mg oral tablet) 3 tab(s) Oral Daily Unchanged Meclizine (meclizine 25 mg oral tablet) 1 tab(s) Oral 3 times a day as needed for for dizziness Unchanged Omeprazole (omeprazole 40 mg oral enteric coated capsule) 1 capsule Oral Daily before a meal ?? Test Results Below is a partial list of the most recent Laboratory test results done prior to this discharge. You may have had other tests and procedures not included in this list. Please discuss all test resultswith your provider. Allergies (NKA means No Known Allergies) Adhesive Bandage??(Skin rash) Latex??(rash) oxyCODONE??(throat closing) Problems Active Problems??(3) Gender Dysphoria?? Bzyk-jn-ruojlx transsexuality?? Obese class I?? Education Materials Below is the list of Educational Leaflet Providered with your Discharge Instructions. Surgery Medical Daystay Surgical Overnight Discharge Instructions?? Valuables and Belongings I fully understand and agree that [facility] accepts no responsibility for all my personal property including clothing, toilet articles, radios, jewelry, dentures, hearing aids, rings, money, or any other property that is in my possession or is brought to me after admission. I understand certain valuables may be placed in a hospital safe for a short period of time. I understand that the hospital is not liable for loss or damage due to accident, fire, or other natural occurrence while said property is in the safe. I accept full responsibility for any personal property that I keep with me, and will not hold the hospital responsible in case of loss or disappearance. I acknowledge that i have been encouraged to send valuables and belongings home. ?? Review of Valuable and Belonging List: With patient Date for Pt to Sign Valuables/Belongings: 10/04/22 12:23:00 ?? Valuables & Belongings ?? Clothes Electronic devices Jewelry Monetary Items Personal devices Miscellaneous Medications (Valuables) Valuables at Bedside Jacket, Pants, Shirt, Shoes, Undergarments Cell phone ? Valuables Sent Home ? Valuables Sent to Security ? Other Discharge Information ? Pulmonary Rehab Status?? Pulmonary Rehab Discharge Status?? Respiratory Rate:??14 br/min??Low ? Common Emergency Awareness Tips IS IT A STROKE? Act FAST and Check for these signs: FACE Does the face look uneven? ARM Does one arm drift down? SPEECH Does their speech sound strange? TIME Call at any sign of stroke ?? Heart Attack Signs Chest discomfort: Most heart attacks involve discomfort in the center of the chest and lasts more than a few minutes, or goes away and comes back. It can feel like uncomfortable pressure, squeezing, fullness or pain. Discomfort in upper body: Symptoms can include pain or discomfort in one or both arms, back, neck, jaw or stomach. Shortness of breath: With or without discomfort. Other signs: Breaking out in a cold sweat, nausea, or lightheaded. Remember, MINUTES DO MATTER. If you experience any of these heart attack warning signs, call to get immediate medical attention! ?? Smoking can increase your chances of developing chronic health problems and can cause harmful effects to other family members in your house. If you smoke, you are strongly encouraged to quit. Please call [facility] at [phone] or [phone] ([phone]) or log in to [email or web address] for referrals to smoking cessation programs. ?? The National Suicide Prevention Hotline is available 10/04 if you or someone you know needs to find a reason to keep living. By calling 9-227-517-[employer] (2164) you'll be connected to a skilled, trained counselor at a crisis center in your area. INPATIENT DISCHARGE INSTRUCTIONS SIGNATURE STEVEN ROBERTS Location:[facility] Registration Date and Time:10/04/2022 11:01 [facility] Primary Care Physician: Samantha Alvarez MD, I STEVEN JEFFRIES, have received the above patient education materials/instructions and have verbalizedunderstanding. If ambulance or transport services are being used I further acknowledge being given a choice of service. ?? If you need to contact me, please call me at this number: . Patient/Systems Developer Name:STEVEN JEFFRIES Patient/Systems Developer Signature: Relationship to Patient: Witness Name/Signature: Date: * Adrienne Pedersen RN: SIGN, VERIFY, PERFORM Event Display: Patient Education Handout Authored Date: [id number] * Adrienne Pedersen RN: PERFORM Event Display: Patient Education Leaflets Authored Date: [id number] Surgery Medical Daystay Surgical Overnight Discharge Instructions ?? 295 Medical Daystay/Surgical Overnight Discharge Instructions ? Since your coordination and judgment may be altered by medication and/or anesthesia, a responsible adult must drive you home from the hospital. ? If you have received medication for pain or sedation while under our care, you should not drive, operate machinery, drink alcohol, or sign any legal documents for 24 hours.?? You should have someone with you at home tonight. ? Remain at home the day of discharge.?? You may be up and about unless otherwise instructed by your physician. ? You may resume your daily prescription medication schedule.?? Any depressant medication should be avoided for 24 hours unless otherwise instructed by your surgeon or anesthesiologist. ? Call your physician for a follow-up appointment.? If you experience unusual or severe pain not relied by your pain medication, excessive bleedingor drainage, persistent nausea and vomiting, excessive swelling or redness, foul odor from incisionsite or fever over 100.6F, you need to call your physician. ? A follow-up phone call by a nurse will be made the day after your procedure.?? If you have stayed with us over night, you will not be receiving a follow-up phone call. ? Nausea and vomiting are a common side effect of prescription pain medication.?? We recommend that pills are not taken on an empty stomach.?? While taking any prescription pain medication you should not drive or drink alcohol. ? Patient Care team information Care Team Personnel Name: Samantha Alvarez MD Position: Reference Physician Member Role: PCP Address: Address: [address] [place] [address] [address] [place] [address]- Care Team Related Persons Name: MILLI WOLFE Address: [address] [place] [address] Name: JEYSON CRISTINA Address: [address] [place] [address] Name: HIRO PRASAD Address: [address] [place] [address]
--- OUTSIDE RECORDS SUMMARY | 2024-07-14 20:07 | XMS_ITS | Continuity of Care Document ---
Author Organization [facility] Address [address] [place] [address]- Care Team Providers Care Automatic Oven Operator Name Role Phone Samantha Alvarez MD Primary Care Physician Encounter [facility] AC[facility] R [id number] Date(s): 03/01/23 - 06/29/23 [facility] [address] [place] [id number]- Attending Physician: Clinton Angulo MD Admitting Physician: Clinton Angulo MD Referring Physician: Samantha Alvarez MD Allergies, Adverse Reactions, Alerts Substance Reaction [...] ealth Status Informant Gender Dysphoria Confirmed Active Litt-px-dlqgcr transsexuality Confirmed Active Obese class I Confirmed Active Social History Social History Type Response Smoking Status Never smoker entered on: 11/07/14 Sex Patient Care team information Care Team Personnel Name: Kim ALEGRE , Samantha Garcia Position: Reference Physician Member Role: PCP Address: Address: [address] [place] [address]- Care Team Related Persons Name: MILLI WOLFE Address: home [address] [place] [address] Name: JEYSON CRISTINA Address: home [address] [place] [address] Name: HIRO PRASAD Address: home [address] [place] [address]
--- NOTE | 2024-07-14 20:44 | ED_ITS ---
HPI - Extremity Injury (Lower) General Chief Complaint: Extremity Injury, Lower Stated Complaint: rt ankle non weight baring/softball injury Time Seen by Provider: 07/14/24 19:43 Source: patient and family Mode of arrival: wheelchair Limitations: no limitations History of Present Illness ED Provider: Emma Whyte APRN HPI Narrative: 34-year-old transgender patient presents the ER with complaints of right ankle pain after playing softball. Patient reports that she was running to [employer] and fell. Unclear if there was an inversion or eversion injury but developed pain on the posterior ankle after the fall. No associated weakness, numbness or tingling. No fevers or chills. Patient reports pain with weight-bearing since this injury. Related Data Previous Rx's ?Medication ?Instructions ?Recorded cyclobenzaprine 10 mg tablet 5 mg (1/2 x 10 mg) PO TID PRN 08/06/20 muscle spasm #20 tabs ciprofloxacin HCl 500 mg tablet 500 mg PO BID #20 tabs 11/15/20 (Cipro) phenazopyridine 200 mg tablet 200 mg PO TID PRN pain 2 days #5 11/15/20 (Pyridium) tabs tramadol 50 mg tablet 50 mg PO Q6H PRN pain #14 tabs 11/15/20 omeprazole 40 mg capsule,delayed 40 mg PO DAILY 30 days #30 caps 04/19/21 release cyclobenzaprine 10 mg tablet 10 mg PO Q8H #20 tabs 06/30/21 hydrocodone 5 mg-acetaminophen 325 1 tab PO Q6H PRN pain #20 tabs 06/30/21 mg tablet prednisone 20 mg tablet 40 mg (2 x 20 mg) PO DAILY 5 days 06/30/21 #10 tabs erythromycin 5 mg/gram (0.5 %) eye 0.5 inch ophthalmic (eye) QID #50 08/03/22 ointment grams albuterol sulfate 90 mcg/actuation 2 puff inhalation Q4-6H PRN 08/12/23 aerosol inhaler (ProAir HFA) shortness of breath or wheezing #8.5 grams amoxicillin 875 mg-potassium 1 tab PO BID #20 tabs 08/12/23 clavulanate 125 mg tablet benzonatate 200 mg capsule 200 mg PO TID PRN cough #30 caps 11/25/23 prednisone 20 mg tablet 40 mg (2 x 20 mg) PO DAILY #10 tabs 08/12/23 benzonatate 100 mg capsule 100 mg PO BID PRN cough #20 caps 12/06/23 phenol 1.5 %-glycerin 33 % mucosal 1 spray mucous membrane Q6-8H PRN 12/06/23 spray (Chloraseptic Max Sore sore throat #118 mL Throat) prednisone 20 mg tablet 40 mg (2 x 20 mg) PO DAILY 5 days 12/06/23 #10 tabs ibuprofen 600 mg tablet 600 mg PO Q8H PRN fever or pain 07/14/24 #30 tabs Allergies Allergy/AdvReac Type Severity Reaction Status Date / Time oxycodone [OXYCODONE] Allergy Severe DIFFICULTY Verified 07/14/24 19:54 BREATHING adhesive tape [ADHESIVE TAPE] Allergy Unknown RASH Verified 07/14/24 19:54 Review of Systems Review of Systems: Yes all other systems are reviewed and are negative Constitutional: Constitutional: Reports no additional constitutional complaints, Denies body ache(s), Denies chills, Denies fever(s), Denies headache(s) and Denies weakness Eyes: Eyes: Reports no additional eye complaints and Denies change in vision ENT: Reports system reviewed and no additional complaints, except as documented, Denies dizziness, Denies headache(s), Denies nasal congestion, Denies nasal discharge and Denies neck pain Cardiovascular: Cardiovascular: Reports no additional cardiovascular complaints, Denies chest pain, Denies leg edema and Denies dyspnea Respiratory: Respiratory: Reports no additional respiratory complaints, Denies cough and Denies dyspnea Gastrointestinal: Gastrointestinal: Reports no additional gastrointestinal complaints, Denies abdominal pain, Denies diarrhea, Denies nausea and Denies vomiting Genitourinary: Genitourinary: Reports no additional female genitourinary complaints and Denies urinary incontinence Musculoskeletal: Musculoskeletal: Reports no additional musculoskeletal complaints, Denies back pain, Reports arthralgias, Denies joint swelling, Denies limited range of motion, Denies neck pain, Denies numbness and Denies tingling Integumentary/Breasts: Skin/Breast: Reports system reviewed and no additional complaints, except as docu and Denies rash Neurologic: Reports system reviewed and no additional complaints, except as documented, Denies Abnormal speech present, Denies dizziness, Denies headache(s), Denies numbness, Denies tingling and Denies weakness [facility] Past Medical History Attestation statement: The following information was validated with the patient. Source: old records reviewed and nursing notes reviewed Medical History Asthma [id number] transgender person Social History Social History Alcohol intake: current Alcohol intake frequency: holidays/special occasions only Alcohol type: hard liquor Advance Directives: No Advance Directives Information Provided: No Current occupational status: employed Current occupation: [employer] Physical Exam Vital Signs: Vital Signs: Last Vital Signs Temp 98.5 F 07/14/24 19:52 Pulse 83 07/14/24 19:52 Resp 16 07/14/24 19:52 BP 157/102 H 07/14/24 19:52 Pulse Ox 96 07/14/24 19:52 O2 Del Method Room Air 07/14/24 19:52 BMI result Body Mass Index 35.4 Const: General: cooperative, healthy appearing, comfortable and no acute distress Orientation/consciousness: patient oriented x3 Limitations: no limitations HEENT: Head: Yes normal to inspection Ears: hearing grossly normal bilaterally General nose exam: Normal external nose present Face and sinus: Yes normal facial exam Mouth: Normal oral and palatal mucosa present Throat: Yes posterior oropharynx normal Eyes: General: appearance normal, both eyes and all related structures Pupils: Equal, round and reactive pupils present Neck: Neck: Yes normal visual inspection Chest: Chest palpation & inspection: normal inspection of the chest Resp: Effort & Inspection: normal respiratory effort Auscultation: clear to auscultation bilaterally Cardio: Rate: regular rate Rhythm: regular rhythm Peripheral pulses: Peripheral pulses 2+ throughout GI: Inspection: Yes normal to inspection Palpation (GI): Soft to palpation and nontender Auscultation: normal bowel sounds Back/Spine/Pelvis: Thoracic/Lumbar Spine: thoracic and lumbar spine normal to inspection Skin: General skin exam: no rashes or lesions noted Neuro: General: patient oriented x3, no focal motor deficits and normal sensation to monofilament Cranial nerves: Yes Equal, round and reactive pupils present Cognition (Neuro): normal cognition Speech: No Abnormal speech present Gait exam (Neuro): Normal gait present Motor exam (neuro): 5/5 motor strength present throughout Extrem: Other: There is pain on palpation to the posterior right ankle. There is no obvious deformity or swelling. There is no pain on palpation over the anterior, medial, lateral ankle or over the dorsal foot. There is no redness or warmth. Negative Espinosa sign. General: Yes normal to inspection Course Course Course Narrative: X-ray show no bony abnormality. Patient does have some tenderness over the posterior ankle however there is no deformity over the Achilles tendon, there is no weakness on exam. And so I doubt there is an Achilles tendon rupture. Likely sprain or strain. Will place patient in Imer wrap and give crutches. Recommend rice. Reviewed worrisome signs and symptoms of when to return to the emergency room. Comfortable plan for discharge home. Medical Decision Making Medical Decision Making MDM Narrative: 34-year-old transgender patient presents the ER with complaints of right ankle pain after playing softball. Patient reports that she was running to [employer] and fell. Unclear if there was an inversion or eversion injury but developed pain on the posterior ankle after the fall. No associated weakness, numbness or tingling. No fevers or chills. Patient reports pain with weight-bearing since this injury. There is pain on palpation to the posterior right ankle. There is no obvious deformity or swelling. There is no pain on palpation over the anterior, medial, lateral ankle or over the dorsal foot. There is no redness or warmth. Negative Espinosa sign. Will obtain x-rays Differential Diagnosis Differential Diagnoses: The differential diagnosis associated with the presentation includes Strain, sprain low suspicion for fracture, dislocation, vascular injury and or Achilles tendon rupture Admission/Observation Consideration of admission/observation: Escalation of care including admission/observation considered low suspicion for complex fracture, dislocation, vascular injury and or Achilles tendon rupture requiring advanced imaging, urgent orthopedic consultation Independent Interpretation I performed an independent interpretation of an: Plain X-Ray Interpretation: I independently viewed the x-ray and agree with the radiology report Radiology Impression Discussion of test interpretation with radiology: I have reviewed the radiologist's reading. Radiologist Impression: [address] [address] XRay Report Signed Patient: Alla Murrieta V MR#: [id number] : 1990 Acct:[id number] Age/Sex: 34 / F ADM Date: 07/14/24 Loc: HO.ED Attending Dr: Ordering Physician: Emma Teran NP Date of Service: 07/14/24 Procedure(s): XR ankle RT 2V Accession Number(s): [id number] cc: DACIA STARK MD; Emma Teran NP~ EXAMINATION: XR ANKLE, RIGHT CLINICAL INFORMATION: Injury, pain COMPARISON: None available. TECHNIQUE: AP, lateral, and mortise views of the right ankle. FINDINGS: No fracture. Alignment is anatomic. No erosions. Joint spaces are maintained. Soft tissues are normal. XR/XR ankle RT 2V IMPRESSION: Unremarkable right ankle. Electronically signed by: Tomy Mcfarlane MD 07/14/2024 08:31 PM EDT RP Independent Historian Clinical information obtained from an independent historian. History obtained from or confirmed by: Spouse Tests considered The following testing was considered but not selected: low suspicion for complex fracture, dislocation, vascular injury and or Achilles tendon rupture requiring advanced imaging Prescription Management I considered prescription management with: Pain Medication Discharge Plan Discharge Clinical Impression: Ankle sprain and strain Patient Disposition: Home, Self-Care Instructions: Ankle Sprain (ED) Additional Instructions: Ice, elevation Use the Imer wrap and crutches for the next few days Started perform gentle [id number] Take Motrin 3 times daily for pain as needed Follow-up with primary care doctor for any persistent symptoms Prescriptions: New ibuprofen 600 mg tablet 600 mg PO Q8H PRN (Reason: fever or pain) Qty: 30 0RF No Action cyclobenzaprine 10 mg tablet 5 mg PO TID PRN (Reason: muscle spasm) Qty: 20 0RF ciprofloxacin HCl [Cipro] 500 mg tablet 500 mg PO BID Qty: 20 0RF phenazopyridine [Pyridium] 200 mg tablet 200 mg PO TID PRN (Reason: pain) 2 Days Qty: 5 0RF tramadol 50 mg tablet 50 mg PO Q6H PRN (Reason: pain) Qty: 14 0RF omeprazole 40 mg capsule,delayed release(DR/EC) 40 mg PO DAILY 30 Days Qty: 30 0RF cyclobenzaprine 10 mg tablet 10 mg PO Q8H Qty: 20 0RF hydrocodone-acetaminophen 5-325 mg tablet 1 tab PO Q6H PRN (Reason: pain) Qty: 20 0RF prednisone 20 mg tablet 40 mg PO DAILY 5 Days Qty: 10 0RF erythromycin 5 mg/gram (0.5 %) ointment 0.5 inch ophthalmic (eye) QID Qty: 50 0RF Rx Instructions: Apply half-inch ribbon under upper left eyelid every 6 hours when you awake benzonatate 200 mg capsule 200 mg PO TID PRN (Reason: cough) Qty: 30 0RF albuterol sulfate [ProAir HFA] 90 mcg/actuation HFA aerosol inhaler 2 puff inhalation Q4-6H PRN (Reason: shortness of breath or wheezing) Qty: 8.5 0RF amoxicillin-pot clavulanate 875-125 mg tablet 1 tab PO BID Qty: 20 0RF prednisone 20 mg tablet 40 mg PO DAILY Qty: 10 0RF benzonatate 100 mg capsule 100 mg PO BID PRN (Reason: cough) Qty: 20 0RF Chloraseptic Max Sore Throat 1.5-33 % spray,non-aerosol 1 spray mucous membrane Q6-8H PRN (Reason: sore throat) Qty: 118 0RF Rx Instructions: leave on area for 15 seconds then spit out prednisone 20 mg tablet 40 mg PO DAILY 5 Days Qty: 10 0RF Print Language: Tajik
[2024-07-14 20:52] VITALS: BP 140/93; PULSE 78; RESP 20; TEMP 36.7; O2SAT 96
== END 2024-07-14 20:52 | disposition home or self-care (01) ==
PROVIDERS: Emergency Provider Internal Medicine; PCP Family Medicine
DX: S93.401A Sprain of unspecified ligament of right ankle, initial encounter (principal); M25.571 Pain in right ankle and joints of right foot; W18.30XA Fall on same level, unspecified, initial encounter; Y93.64 Activity, baseball; Y92.320 Baseball field as the place of occurrence of the external cause; Y99.8 Other external cause status
CPT/HCPCS: 73600; 99283